=== PATIENT | male | born 1965 | race Caucasian/White ===

== ENCOUNTER → 2016-12-22 | Outpatient (CLI) | payer MEDICAID ==
[~2016-12-22] MED LIST: ASP325TEC PO; CARV12.5 PO; CEPH500C PO; HCTZ12.5T PO; LSNP20T PO
== END ==
LOC: CARD 15:45
PROVIDERS: ATTEND Physician Assistant
DX: I11.0 Hypertensive heart disease with heart failure (principal); R07.89 Other chest pain; I50.1 Left ventricular failure, unspecified
CPT/HCPCS: 93306

== ENCOUNTER → 2018-09-11 | Outpatient (CLI) | payer MEDICARE, MEDICAID ==
[~2018-09-11] MED LIST changes: +CATHETER FLUSH 10 ML SYR IV PRN; +REGADENOSON 0.4 MG/5 ML SYR (LEXISCAN) IV ONE
--- NOTE | 2018-09-11 13:06 | NUR ---
I entered room to assist with his stress test. Patient states he is not waiting any longer. I explain the process to him and that leaving now will result in no information from this test. He insisted he was leaving. I dc'd his int catheter in tact and applied a pressure drsg. I escorted him out to the winter way. Patient was very pleasant the whole time but insistent on leaving now.
== END ==
LOC: CARD 10:42
PROVIDERS: ATTEND Physician Assistant
DX: I25.10 Atherosclerotic heart disease of native coronary artery without angina pectoris (principal); R07.89 Other chest pain; I11.0 Hypertensive heart disease with heart failure; I50.9 Heart failure, unspecified; I08.1 Rheumatic disorders of both mitral and tricuspid valves
CPT/HCPCS: 78451; 93017; 93306

== ENCOUNTER 2020-07-15 06:37 | Day surgery (SDC) | payer MEDICARE, MEDICAID ==
[~2020-07-15] VITALS: Ht 172.5 cm; Wt 128.9 kg
[~2020-07-15 06:37] MED LIST changes: -CATHETER FLUSH 10 ML SYR IV PRN; -REGADENOSON 0.4 MG/5 ML SYR (LEXISCAN) IV ONE
[2020-07-15] MEDS ORDERED: morphine INJ 10 MG/ML 1ML (SYR OR VIAL) IVP STA (06:45)
[2020-07-15] MEDS ORDERED: MIDAZOLAM 5 MG/5 ML (VERSED) VIAL ONE (06:51)
[2020-07-15] MEDS ORDERED: fentaNYL INJ 100 MCG/2 ML AMP ONE ×2 (06:52→11:41)
--- NOTE | 2020-07-15 06:53 | ED Chest Pain ---
General Stated Complaint: CP Source: patient Exam Limitations: no limitations History of Present Illness Date Seen by Provider: Jul 15, 2020 Time Seen by Provider: 06:33 Initial Comments Patient presents the ER by EMS from [facility] with chief complaint of waking around 530 this morning with chest pain. He is followed with Dr. Mann in the past for heart failure but does not know if he is ever had stents or heart attack before. EMS gave him 1 aspirin on route but he would not take anymore because his mouth was dry. They noticed ST elevation in leads V1, V2 and V3. Patient has a history of hypertension hyperlipidemia but denies smoking. He does occasionally dip. He denies recreational drugs. He says he quit taking his medicines about 3 or 4 years ago. Pain is left anterior chest, nonreproducible to palpation and rates it as a 6 out of 10. No nitroglycerin given on route. Allergies and Home Medications Allergies Coded Allergies: No Known Drug Allergies (Unverified , 09/01/13) Home Medications Aspirin 325 Mg Tabec, 325 MG PO DAILY Prescribed by: LIBIA TROY on 09/03/13 1353 Carvedilol 12.5 Mg Tablet, 12.5 MG PO BID Prescribed by: LIBIA TROY on 09/03/13 1353 Cephalexin Monohydrate 500 Mg Capsule, 1 EACH PO QID, (Reported) Lisinopril 20 Mg Tab, 40 MG PO DAILY@0900 Prescribed by: LIBIA TROY on 09/03/13 1353 Patient Home Medication List Home Medication List Reviewed: Yes Review of Systems Review of Systems Constitutional: No chills, No diaphoresis EENTM: No Blurred Vision, No Double Vision Respiratory: Denies Cough, Denies Shortness of Air Cardiovascular: Denies Chest Pain, Denies Lightheadedness Gastrointestinal: Denies Constipated, Denies Diarrhea, Denies Nausea Genitourinary: Denies Burning, Denies Discharge Musculoskeletal: No back pain, No joint pain All Other Systems Reviewed Negative Unless Noted: Yes Past Jfenjmp-Rylezn-Yaudhh Hx Patient Social History Alcohol Use: Denies Use Smoking Status: Never a Smoker Type Used: Smokeless Tobacco Immunizations Up To Date Tetanus Booster (TDap): More than 5yrs Past Medical History Reproductive Disorders: No Family Medical History Cancer Cataract Chest pain Congenital heart disease Congestive heart failure Family history: Arthritis Family history: Asthma Family history: Cardiovascular disease Family history: Coronary thrombosis Family history: Diabetes mellitus Family history: Hypertension Heart disease History of - respiratory disease Hypercholesterolemia Kidney disease Myocardial infarction No Family History of: Abdominal aortic aneurysm Chase's disease Alcoholism Aphasia Cancer of colon Cystic fibrosis Dementia Dysphagia Family history: Allergy Family history: Alzheimer's disease Family history: Breast disease Family history: Gastrointestinal disease Family history: Glaucoma Family history: Osteoporosis Family history: Thyroid disorder Headache Hearing loss Hereditary disease History of - anemia History of drug abuse Human immunodeficiency virus (HIV) seropositivity Infertile Malignant neoplasm of lung Parkinson's disease Prostate cancer Psychotic disorder Seizure disorder Stroke Tuberculosis Visual impairment Physical Exam Vital Signs Capillary Refill : Height, Weight, BMI Height: 5'6.00" Weight: 318lbs. 3.2oz. [id number]; BMI Method: General Appearance: Chronically ill, Moderate Distress, Obese HEENT: Pharynx Normal, Moist Mucous Membranes Neck: Full Range of Motion, Normal Inspection Respiratory: No Accessory Muscle Use, No Respiratory Distress Cardiovascular: Regular Rate, Rhythm, Normal Peripheral Pulses Gastrointestinal: Normal Bowel Sounds, Non Tender, Soft Extremity: Normal Capillary Refill, Normal Inspection Neurologic/Psychiatric: Alert, Oriented x3, No Motor/Sensory Deficits Skin: Normal Color, Warm/Dry Progress/Results/Core Measures Results/Orders My Orders Orders - RENA BROWNE Cbc With Automated Diff (07/15/20 06:45) Magnesium (07/15/20 06:45) Chest 1 View, Ap/Pa Only (07/15/20 06:45) Ekg Tracing (07/15/20 06:45) Comprehensive Metabolic Panel (07/15/20 06:45) Myoglobin Serum (07/15/20 06:45) Protime With Inr (07/15/20 06:45) Partial Thromboplastin Time (07/15/20 06:45) O2 (07/15/20 06:45) Monitor-Rhythm Ecg Trace Only (07/15/20 06:45) Lipid Panel (07/16/20 06:00) Ed Iv/Invasive Line Start (07/15/20 06:45) Lipase (07/15/20 06:45) BNP (07/15/20 06:45) Troponin I (07/15/20 06:45) Nitroglycerin 0.4 Mg Btl 25's (Nitrostat (07/15/20 06:45) Morphine Injection (Morphine Injection (07/15/20 06:45) Progress Progress Note : Time: 06:54 Progress Note Patient left for Hospice Social Worker at 650. We were not able to initiate heparin drip but we did get 2 IVs, and EKG vitals and send him with nitroglycerin and morphine. Initial ECG Impression Date: Jul 15, 2020 Initial ECG Impression Time: 06:42 Initial ECG Rate: 121 Initial ECG Rhythm: S.Tach Initial ECG Intervals: Normal Initial ECG Impression: Acute MS Comment ST elevation in leads V1, V2, V3, V4. No inferior changes. Diagnostic Imaging Diagonstic Imaging: Xray Plain Films/CT/US/NM/MRI: chest Reviewed: Reviewed by Me Departure Communication (Admissions) Time/Spoke to Admitting Phy: 06:15 Dr Moses: Cardiology notified that STEMI was on the way by EMS and Hospice Social Worker was notified. Impression Primary Impression: STEMI (ST elevation myocardial infarction) Qualified Codes: I21.02 - ST elevation (STEMI) myocardial infarction involving left anterior descending coronary artery Disposition: ADMITTED INPATIENT Condition: Critical Admissions Decision to Admit Reason: Admit from ER (General) Decision to Admit/Date: Jul 15, 2020 Time/Decision to Admit Time: 06:40 Departure-Patient Inst. Referrals: [facility] (PCP/Family) Primary Care Physician RENA BROWNE Jul 15, 2020 06:53
[2020-07-15 06:55] LABS: BASOPHILS # (AUTO) 0.1 10^3/uL (0.0-0.1); BASOPHILS % (AUTO) 0 % (0-10); EOSINOPHILS % (AUTO) 0 % (0-10); HEMATOCRIT 46 % (40-54); HEMOGLOBIN 14.7 g/dL (13.3-17.7); LYMPHOCYTES # (AUTO) 1.9 10^3/uL (1.0-4.0); LYMPHOCYTES % (AUTO) 12 % (12-44); MEAN CORPUSCULAR HEMOGLOBIN 30 pg (25-34); MEAN CORPUSCULAR HGB CONC 32 g/dL (32-36); MEAN CORPUSCULAR VOLUME 92 fL (80-99); MONOCYTES # (AUTO) 1.1 10^3/uL (0.0-1.0); MONOCYTES % (AUTO) 7 % (0-12); NEUTROPHILS # (AUTO) 12.3 10^3/uL (1.8-7.8); NEUTROPHILS % (AUTO) 80 % (42-75); PLATELET COUNT 293 10^3/uL (130-400); WHITE BLOOD COUNT 15.5 10^3/uL (4.3-11.0)
[2020-07-15] MEDS ORDERED: proPOfol 200 MG/20 ML (DIPRIVAN) VIAL IV ONE (07:04)
[2020-07-15 07:05] LABS: INR 1.1 (0.8-1.4); PROTHROMBIN TIME PATIENT 14.1 SEC (12.2-14.7)
[2020-07-15 07:06] LABS: CHLORIDE 97 MMOL/L (98-107); POTASSIUM 3.4 MMOL/L (3.6-5.0); SODIUM 136 MMOL/L (135-145)
[2020-07-15 07:07] LABS: CALCIUM 8.8 MG/DL (8.5-10.1)
[2020-07-15] MEDS ORDERED: NITRO DRIP 25000 MCG/D5W 250 ML IV ONE (07:07)
[2020-07-15 07:08] LABS: GLUCOSE 334 MG/DL (70-105); TOTAL PROTEIN 7.7 GM/DL (6.4-8.2)
[2020-07-15 07:09] LABS: CARBON DIOXIDE 25 MMOL/L (21-32)
[2020-07-15 07:10] LABS: BILIRUBIN,TOTAL 0.9 MG/DL (0.1-1.0)
[2020-07-15 07:11] LABS: ALKALINE PHOSPHATASE 133 U/L (40-136)
[2020-07-15 07:12] LABS: CREATININE SERUM 0.96 MG/DL (0.60-1.30); GFR ESTIMATED > 60
[2020-07-15 07:13] LABS: BUN/CREATININE RATIO 10
[2020-07-15 07:15] LABS: ALANINE AMINOTRANSFERASE 20 U/L (0-55); MAGNESIUM 1.8 MG/DL (1.6-2.4)
[2020-07-15 07:16] LABS: LIPASE 11 U/L (8-78)
[2020-07-15] MEDS ORDERED: EPTIFIBATIDE BOLUS 20 ML IV ONE (07:16)
[2020-07-15] MEDS ORDERED: EPTIFIBATIDE BOLUS 10 ML IV ONE (07:16)
[2020-07-15] MEDS ORDERED: CLOPIDOGREL 300 MG (PLAVIX) TABLET PO ONE (07:32)
[2020-07-15] MEDS ORDERED: ASPIRIN 81 MG CHEW (CHILDREN'S ASA) ONE (07:32)
[2020-07-15 07:39] LABS: BASOPHILS % (MANUAL) 1 %; EOSINOPHILS % (MANUAL) 0 %; LYMPHOCYTES % (MANUAL) 10 %; MONOCYTES % (MANUAL) 7 %; NEUTROPHILS % (MANUAL) 82 %; RBC MORPH NORMAL
[2020-07-15] MEDS ORDERED: lisINopril 20 MG (PRINIVIL) TABLET PO ONE (07:45)
[2020-07-15] MEDS ORDERED: NS IV 1000 ML 1,000 ML IV SCH (07:45)
[2020-07-15] MEDS ORDERED: meTOprolol 5 MG/5 ML (LOPRESSOR) VIAL ONE (07:45)
[2020-07-15] MEDS ORDERED: PATIENT MAY USE OWN MEDS, ALL PO SCH (07:45)
[2020-07-15] MEDS ORDERED: meTOprolol SUCCINATE 100 MG (TOPROL XL) TAB PO ONE ×3 (07:45→19:00)
[2020-07-15 08:00] VITALS: BP 184/137
[2020-07-15] MEDS ORDERED: KCL 20 MEQ TAB (K-DUR) PO ONE (08:00)
--- NOTE | 2020-07-15 08:03 | Consultation-Cardiology ---
HPI-Cardiology Cardiology Consultation: Date of Consultation 07/15/20 Time Seen by a Provider: 06:50 Date of Admission 07/15/20 Attending Physician Admitting Physician [facility] Consulting Physician ZURDO TRIMBLE MD, MA, FACP, FACC, FSCAI, CCDS HPI: Chief Complaint: CC: Chest pain HPI 55 yo man with sudden onset of chest pain: midsternal, severe, radiating to back, associated with diaphoresis, w/o aggravating or relieving factors, never experienced before. Found to have ST elevation in ant leads by EMT. Brought to ER here and underwent emergency card cath and cor intervention for continuing severe symptoms and marked ST elevation in the anterior leads. Chronic exertional shortness of breath. No palp or syncope. Chronic, mild, intermittent ankle swellin Review of Systems-Cardiology Review of Systems Constitutional: No malaise, No weight loss, No weight gain Eyes: No vision change Ears/Nose/Throat: No ear discharge, No nasal drainage, No recent hearing loss Respiratory: As described under HPI Cardiovascular: As described under HPI Gastrointestinal: No diarrhea, No vomiting Genitourinary: No dysuria, No hematuria, No urine frequency changes Musculoskeletal: back pain (chronic) Skin: No rash, No ulcerations Psychiatric/Neurological: No seizure, No focal weakness, No syncope Hematologic: No bleeding abnormalities All Other Systems Reviewed Negative Unless Noted: Yes YZU-Ofsmvk-Jetaju Hx Patient Social History Smoking Status: Never a Smoker 2nd Hand Smoke Exposure: No Immunizations Up To Date Tetanus Booster (TDap): More than 5yrs Past Medical History PMH As described under Assessment. Family Medical History Family History: Cancer Cataract Chest pain Congenital heart disease Congestive heart failure Family history: Arthritis Family history: Asthma Family history: Cardiovascular disease Family history: Coronary thrombosis Family history: Diabetes mellitus Family history: Hypertension Heart disease History of - respiratory disease Hypercholesterolemia Kidney disease Myocardial infarction No Family History of: Abdominal aortic aneurysm Kila's disease Alcoholism Aphasia Cancer of colon Cystic fibrosis Dementia Dysphagia Family history: Allergy Family history: Alzheimer's disease Family history: Breast disease Family history: Gastrointestinal disease Family history: Glaucoma Family history: Osteoporosis Family history: Thyroid disorder Headache Hearing loss Hereditary disease History of - anemia History of drug abuse Human immunodeficiency virus (HIV) seropositivity Infertile Malignant neoplasm of lung Parkinson's disease Prostate cancer Psychotic disorder Seizure disorder Stroke Tuberculosis Visual impairment Allergies and Home Medications Allergies Coded Allergies: No Known Drug Allergies (Unverified , 09/01/13) Home Medications Aspirin 325 Mg Tabec, 325 MG PO DAILY Prescribed by: LIBIA TROY on 09/03/13 135 Carvedilol 12.5 Mg Tablet, 12.5 MG PO BID Prescribed by: LIBIA TROY on 09/03/131352 Cephalexin Monohydrate 500 Mg Capsule, 1 EACH PO QID, (Reported) Lisinopril 20 Mg Tab, 40 MG PO DAILY@0900 Prescribed by: LIBIA TROY on 09/03/13 135 Patient Home Medication List Home Medication List Reviewed: Yes Physical Exam-Cardiology Physical Exam Vital Signs/I&O 07/15/20 07/15/20 07/15/20 07/15/20 06:40 06:40 06:40 06:51 Temp 36.0 36.0 Pulse 120 118 Resp 20 20 B/P (MAP) 208/147 (167) 200/120 Pulse Ox 91 91 91 O2 Delivery OxyMask OxyMask OxyMask OxyMask O2 Flow Rate 10.0 10.00 10.0 10.00 Capillary Refill : Less Than 3 Seconds Constitutional: AAO x 3, well-developed, well-nourished HEENT: No xanthelasmas are seen Neck: carotid pulses are 2 + bilaterally, with good upstrokes Respiratory: No accessory muscle use; other (fair to good, bilateral air entry) Cardiovascular: regular rate-rhythm, S1 and S2, systolic murmur (soft JUS at card base) Gastrointestinal: No tender; soft; No guarding, No rebound; audible bowel sounds Extremities: No clubbing, No cyanosis, No significant edema Neurologic/Psychiatric: oriented x 3, other (moves all limbs equally) Skin: No rash on exposed areas, No ulcerations on exposed areas Data Review Labs Laboratory Tests 07/15/20 06:45: White Blood Count 15.5H, Red Blood Count 4.95, Hemoglobin 14.7, Hematocrit 46, Mean Corpuscular Volume 92, Mean Corpuscular Hemoglobin 30, Mean Corpuscular Hemoglobin Concent 32, Red Cell Distribution Width 13.6, Platelet Count 293, Mean Platelet Volume 11.0, Immature Granulocyte % (Auto) 1, Neutrophils (%) (Auto) 80H, Lymphocytes (%) (Auto) 12, Monocytes (%) (Auto) 7, Eosinophils (%) (Auto) 0, Basophils (%) (Auto) 0, Neutrophils # (Auto) 12.3H, Lymphocytes # (Auto) 1.9, Monocytes # (Auto) 1.1H, Eosinophils # (Auto) 0.0, Basophils # (Auto) 0.1, Immature Granulocyte # (Auto) 0.1, Neutrophils % (Manual) 82, Lymphocytes % (Manual) 10, Monocytes % (Manual) 7, Eosinophils % (Manual) 0, Basophils % (Manual) 1, Blood Morphology Comment NORMAL, Prothrombin Time 14.1, INR Comment 1.1, Activated Partial Thromboplast Time 30, Sodium Level 136, Potassium Level 3.4L, Chloride Level 97L, Carbon Dioxide Level 25, Anion Gap 14, Blood Urea Nitrogen 10, Creatinine 0.96, Estimat Glomerular Filtration Rate > 60, BUN/Creatinine Ratio 10, Glucose Level 334H, Calcium Level 8.8, Corrected Calcium 8.8, Magnesium Level 1.8, Total Bilirubin 0.9, Aspartate Amino Transf (AST/SGOT) 22, Alanine Aminotransferase (ALT/SGPT) 20, Alkaline Phosphatase 133, Myoglobin 90.3, Troponin I 0.754*H, B-Type Natriuretic Peptide 160.5H, Total Protein 7.7, Albumin 4.0, Lipase 11 Laboratory Tests 07/15/20 06:45 A/P-Cardiology Assessment/Admission Diagnosis CAD - Ac anterior wall STEMI on 07/15/20 - Card cath: mid vessel occlusion of LAD treated with primary PCI and stenting with Alpine Xience 2.75 x 23 mm stent (deployed at 20 lucas), multiple 30-40% stenoses in the LCx and RCA, LVEDP approx 30 mmHg, LVEF approx 45% Cardiac risk factors - Hypertension, noncompliant with treatment - DM II, noncompliant with treatment - Obesity Discussion and Recomendations * DAPT * Statin * BB * RADHA-inhib * Replenish K * Monitor labs * Hospitalist consult for management of DM II Clinical Quality Measures AMI/AHF: ASA po Prior to arrival: Yes (81) ZURDO TRIMBLE MD FACP [facility] Jul 15, 2020 08:03
[2020-07-15] MEDS ORDERED: PATIENT MAY USE OWN MEDS, ALL MC SCH (08:15)
[2020-07-15] MEDS: NS IV 1000 ML 1,000 ML IV SCH ×2 (08:15→17:19)
[2020-07-15 09:00] VITALS: BP 196/148
[2020-07-15] MEDS ORDERED: lisINopril 20 MG (PRINIVIL) TABLET PO NR (09:00)
[2020-07-15] MEDS ORDERED: meTOprolol SUCCINATE 100 MG (TOPROL XL) TAB PO NR ×2 (09:00→11:00)
[2020-07-15] MEDS ORDERED: KCL 20 MEQ TAB (K-DUR) PO NR (09:00)
--- NOTE | 2020-07-15 10:03 | Anesthesia-General Post-Op ---
MAC Patient Condition Mental Status/LOC: Same as Preop Cardiovascular: Satisfactory Nausea/Vomiting: Absent Respiratory: Satisfactory Pain: Controlled Complications: Absent Post Op Complications Complications None Follow Up Care/Instructions Patient Instructions None needed. Anesthesiology Discharge Order Discharge Order I was called to laborer bituminous paving to assist with sedation after midazolam 1 mg IV and fentanyl 25 mcg IV was given. He was extremely anxious and agitated prior to my arrival. Patient is currently doing well, still appears somewhat SOB but SaO2 low 90's, hypertensive and tachycardic, no apparent adverse anesthesia problems. MARLYN CONROY DO Jul 15, 2020 10:03
[2020-07-15] MEDS ORDERED: amLODIPine 5 MG (NORVASC) TAB ONE (10:38)
[2020-07-15] MEDS ORDERED: NITROGLYCERIN 0.4 MG SL TABS BTL 25'S SL ONE (10:45)
[2020-07-15] MEDS ORDERED: amLODIPine 5 MG (NORVASC) TAB PO NR (11:00)
[2020-07-15] MEDS ORDERED: LORazepam INJ 2 MG/ML (ATIVAN) VIAL ONE (11:33)
[2020-07-15] MEDS ORDERED: ATROPINE INJECTION 1 MG/10 ML SYR (ABBOTT) ONE (11:41)
[2020-07-15] MEDS: NITROGLYCERIN 0.4 MG SL TABS BTL 25'S SL PRN ×2 (11:44→11:52)
[2020-07-15] MEDS ORDERED: LORazepam INJ 2 MG/ML (ATIVAN) VIAL IVP NR (11:45)
--- NOTE | 2020-07-15 11:59 | Consultation - Hospitalist ---
DEQUAN FELIZ MED STUDENT 07/15/20 1159: HPI History of Present Illness: HPI/Chief Complaint Pt is a 55 yo M admitted to ICU follow ED visit for CC of chest pain. Pt called EMS following intense chest pain, SOB, and palpitations on a walk. Pt was found to have ST elevations in leads V1, V2, and V3. Pt was evaluated by Dr. Moses and sent for stent placement of LAD. Pt has a hx of CHF, HTN, and diabetes to which he notes that he stopped all medications 3-4 years ago without real reason. We are being consulted today for evaluation and management of the patients diabetes. Glucose readings in ED were 334. Pt denies checking his blood sugar regularly or taking insulin. Source: patient, RN/MD (ED summary/ notes) Date Seen 07/15/20 Attending Physician [facility]quan Moses [facility] [place] Referring Physician Date of Admission Home Medications & Allergies Home Medications Reviewed patient Home Medication Reconciliation performed by pharmacy medication reconciliations microcomputer technician and/or nursing. Patients Allergies have been reviewed. Allergies Allergies Coded Allergies No Known Drug Allergies (Unverified09/01/13) Past Yzsurbt-Iuzjqe-Krtflm Hx Patient Social History Alcohol Use: Denies Use Recreational Drug Use: No Smoking Status: Never a Smoker Type Used: Smokeless Tobacco 2nd Hand Smoke Exposure: No Recent Foreign Travel: No Contact w/other who traveled: No Recent Hopitalizations: No Recent Infectious Disease Expo: No Immunizations Up To Date Tetanus Booster (TDap): More than 5yrs Seasonal Allergies Seasonal Allergies: No Past Medical History Cardiac: Coronary Artery Disease, Hypertension Congestive Heart Failure Reproductive: No Endocrine: Diabetes, Insulin dep Are Your Blood Sugars Over 250: Yes History of Blood Disorders: No Family History Cancer Cataract Chest pain Congenital heart disease Congestive heart failure Family history: Arthritis Family history: Asthma Family history: Cardiovascular disease Family history: Coronary thrombosis Family history: Diabetes mellitus Family history: Hypertension Heart disease History of - respiratory disease Hypercholesterolemia Kidney disease Myocardial infarction No Family History of: Abdominal aortic aneurysm [place]'s disease Alcoholism Aphasia Cancer of colon Cystic fibrosis Dementia Dysphagia Family history: Allergy Family history: Alzheimer's disease Family history: Breast disease Family history: Gastrointestinal disease Family history: Glaucoma Family history: Osteoporosis Family history: Thyroid disorder Headache Hearing loss Hereditary disease History of - anemia History of drug abuse Human immunodeficiency virus (HIV) seropositivity Infertile Malignant neoplasm of lung Parkinson's disease Prostate cancer Psychotic disorder Seizure disorder Stroke Tuberculosis Visual impairment Review of Systems Constitutional: No chills, No dizziness EENTM: no symptoms reported Respiratory: cough, dyspnea on exertion, hemoptysis, orthopnea, short of breath Cardiovascular: chest pain, palpitations Gastrointestinal: No abdominal pain, No nausea, No vomiting Genitourinary: no symptoms reported Musculoskeletal: No back pain, No muscle pain Skin: no symptoms reported Psychiatric/Neurological: Denies Numbness, Denies Paresthesia, Denies Weakness All Other Systems Reviewed Negative Unless Noted: Yes Physical Exam Physical Exam Vital Signs Vital Signs - First Documented Capillary Refill : Less Than 3 Seconds Height, Weight, BMI Height: 5'6.00" Weight: 318lbs. 3.2oz. 144.106388pi; 43.00 BMI Method: General Appearance: Chronically ill, Moderate Distress, Obese HEENT: Pharynx Normal, Moist Mucous Membranes Neck: Full Range of Motion, Normal Inspection Respiratory: No Accessory Muscle Use, No Respiratory Distress, Decreased Breath Sounds Cardiovascular: Normal Peripheral Pulses, Tachycardia Gastrointestinal: Normal Bowel Sounds, Non Tender, Soft Rectal: Deferred Extremity: Normal Capillary Refill, Normal Inspection, Non Tender, No Calf Tenderness, Pedal Edema, Swelling (LE edema) Neurologic/Psychiatric: Alert, Oriented x3, No Motor/Sensory Deficits Skin: Normal Color, Warm/Dry Results Results/Procedures Labs Laboratory Tests 07/15/20 06:45 Patient resulted labs reviewed. Assessment/Plan Assessment and Plan Assess & Plan/Chief Complaint ASSESSMENT: Uncontrolled T2DM Post coronary stent placement (07/15) HTN CHF PLAN: Stabilize pt BP/ HR Initiate sliding scale insulin Monitor glucose Potassium replacement Pt education Appreciate cardiology recs Consult Dr. Gomes for hemoptysis Clinical Quality Measures AMI/AHF: ASA po Prior to arrival: Yes (81) ANA CROSS DO 07/16/20 0532: HPI History of Present Illness: HPI/Chief Complaint CC: DM management HPI: [facility] 55[facility] and was taken to mushroom laborer and stent placed. Patient has a h/o DM and CHF and is disabled and stopped taking all of his meds 4 years ago. Patient is very non- compliant with sheath restrictions following cath procedure. Patient is not interested in insulin or any other medication and treatment so will try out best to manage this complex patient Source: patient, RN/MD (ED summary/ notes) Exam Limitations: clinical condition Past Insjdhz-Sadkqw-Vyrdmp Hx Past Med/Social Hx: Reviewed Nursing Past Med/Soc Hx, Reviewed and Corrections made Patient Social History Marrital Status: single Employed/Student: unemployed Family History Cancer Cataract Chest pain Congenital heart disease Congestive heart failure Family history: Arthritis Family history: Asthma Family history: Cardiovascular disease Family history: Coronary thrombosis Family history: Diabetes mellitus Family history: Hypertension Heart disease History of - respiratory disease Hypercholesterolemia Kidney disease Myocardial infarction No Family History of: Abdominal aortic aneurysm [place]'s disease Alcoholism Aphasia Cancer of colon Cystic fibrosis Dementia Dysphagia Family history: Allergy Family history: Alzheimer's disease Family history: Breast disease Family history: Gastrointestinal disease Family history: Glaucoma Family history: Osteoporosis Family history: Thyroid disorder Headache Hearing loss Hereditary disease History of - anemia History of drug abuse Human immunodeficiency virus (HIV) seropositivity Infertile Malignant neoplasm of lung Parkinson's disease Prostate cancer Psychotic disorder Seizure disorder Stroke Tuberculosis Visual impairment Review of Systems Constitutional: see HPI Physical Exam Physical Exam General Appearance: Anxious, Chronically ill, Moderate Distress, Obese Respiratory: No Accessory Muscle Use, No Respiratory Distress, Decreased Breath Sounds Cardiovascular: Tachycardia Assessment/Plan Assessment and Plan Assess & Plan/Chief Complaint Assessment: DM OOC Non-compliance with treatments Obesity Appears to have YONI Plan: Monitor closely Diagnosis/Problems Diagnosis/Problems (1) Acute ST elevation myocardial infarction (STEMI) of anterior wall Supervisory-Addendum Brief Verification & Attestation Participated in pt care: history, MDM, physical Personally performed: exam, history, MDM, supervision of care Care discussed with: Medical Student Procedures: n/a Results interpretation: Verified all documentation Verification and Attestation of Medical Student E/M Service A medical student performed and documented this service in my presence. I reviewed and verified all information documented by the medical student and made modifications to such information, when appropriate. I personally performed the physical exam and medical decision making. Ana Cross, Jul 16, 2020,05:33 DEQUAN FELIZ MED STUDENT Jul 15, 2020 11:59 ANA CROSS DO Jul 16, 2020 05:32
--- NOTE | 2020-07-15 14:04 | Pulmonary Consultation ---
History of Present Illness History of Present Illness Date Seen by Provider: Jul 15, 2020 Time Seen by Provider: 13:59 Date of Admission History of Present Illness 55yo preseted to ED secondary to sudden onset midsternal 02/13 radiating to back and associated with diaphoresis. He was found to have a STEMI in the anterior leads. He is now s/p emergent cath with stent placement. Allergies and Home Medications Allergies Coded Allergies: No Known Drug Allergies (Unverified , 09/01/13) Home Medications Aspirin 325 Mg Tabec, 325 MG PO DAILY Prescribed by: LIBIA TROY on 09/03/13 1353 Carvedilol 12.5 Mg Tablet, 12.5 MG PO BID Prescribed by: LIBIA TROY on 09/03/13 1353 Cephalexin Monohydrate 500 Mg Capsule, 1 EACH PO QID, (Reported) Lisinopril 20 Mg Tab, 40 MG PO DAILY@0900 Prescribed by: LIBIA TROY on 09/03/13 1353 Past Kbzihdt-Ncmlgy-Khizuj Hx Patient Social History Alcohol Use: Denies Use Smoking Status: Heavy Tobacco Smoker Type Used: Smokeless Tobacco 2nd Hand Smoke Exposure: No Recent Infectious Disease Expo: No Recent Hopitalizations: No Have you traveled recently?: No Alcohol Use?: No Immunizations Up To Date Tetanus Booster (TDap): More than 5yrs Seasonal Allergies Seasonal Allergies: No Past Medical History Surgeries: Yes (HEART CATH) Respiratory: No Cardiac: Yes (CHF) Coronary Artery Disease, Hypertension Neurological: No Reproductive Disorders: No Genitourinary: No Gastrointestinal: No Musculoskeletal: No Endocrine: No Diabetes, Insulin dep Are Your Blood Sugars Over 250: Yes HEENT: No Cancer: No Psychosocial: No Integumentary: No Blood Disorders: No Family Medical History Cancer Cataract Chest pain Congenital heart disease Congestive heart failure Family history: Arthritis Family history: Asthma Family history: Cardiovascular disease Family history: Coronary thrombosis Family history: Diabetes mellitus Family history: Hypertension Heart disease History of - respiratory disease Hypercholesterolemia Kidney disease Myocardial infarction No Family History of: Abdominal aortic aneurysm Zain's disease Alcoholism Aphasia Cancer of colon Cystic fibrosis Dementia Dysphagia Family history: Allergy Family history: Alzheimer's disease Family history: Breast disease Family history: Gastrointestinal disease Family history: Glaucoma Family history: Osteoporosis Family history: Thyroid disorder Headache Hearing loss Hereditary disease History of - anemia History of drug abuse Human immunodeficiency virus (HIV) seropositivity Infertile Malignant neoplasm of lung Parkinson's disease Prostate cancer Psychotic disorder Seizure disorder Stroke Tuberculosis Visual impairment Review of Systems Time Seen by Provider: 14:27 Sepsis Event Evaluation Height, Weight, BMI Height: 5'6.00" Weight: 318lbs. 3.2oz. 144.196343xt; 43.01 BMI Method: Exam Exam Vital Signs Date Time Temp Pulse Resp B/P (MAP) Pulse Ox O2 Delivery O2 Flow Rate FiO2 07/15/20 13:00 97 07/15/20 12:06 101 44 148/102 (117) 94 High Flow N/C 10.00 07/15/20 12:00 High Flow N/C 10.00 07/15/20 11:00 117 38 205/121 (149) 78 High Flow N/C 10.00 07/15/20 10:00 116 60 195/163 (174) 78 High Flow N/C 10.00 07/15/20 09:00 112 196/148 (164) 07/15/20 09:00 112 48 189/141 (157) 96 High Flow N/C 10.00 07/15/20 08:00 98 30 184/137 (153) 93 07/15/20 08:00 101 07/15/20 07:50 118 20 202/155 (171) 93 OxyMask 10.00 07/15/20 06:51 36.0 118 20 200/120 91 OxyMask 10.00 07/15/20 06:40 OxyMask 10.0 07/15/20 06:40 91 OxyMask 10.00 07/15/20 06:40 36.0 120 20 208/147 (167) 91 OxyMask 10.0 Height & Weight Height: 5'6.00" Weight: 318lbs. 3.2oz. 144.246643uv; 43.01 BMI Method: General Appearance: Chronically ill, Moderate Distress, Obese HEENT: Pharynx Normal, Moist Mucous Membranes Neck: Full Range of Motion, Normal Inspection Respiratory: No Accessory Muscle Use, No Respiratory Distress, Decreased Breath Sounds Cardiovascular: Normal Peripheral Pulses, Tachycardia Capillary Refill: Less Than 3 Seconds Extremity: Normal Capillary Refill, Normal Inspection, Non Tender, No Calf Tenderness, Pedal Edema, Swelling (LE edema) Neurologic/Psychiatric: Alert, Oriented x3, No Motor/Sensory Deficits Skin: Normal Color, Warm/Dry Results Lab Laboratory Tests 07/15/20 06:45 Assessment/Plan Assessment/Plan Respiratory distress with hypoxia -Check PCT -Check CXR and ABG Pulmonary edema r/o PNA -Start Zosyn -continue Lasix -Check PCT CHF EF 45% with hypoxia -Continue lasix Hemoptysis - Onset was after heart cath -Will continue to monitor for now -Obtain CXR -Monitor -Check bilateral LE dopplers Acute STEMI s/p cath CAD Never smoker DM II HTN Morbid Obestiy JHONNY BRYANT DO Jul 15, 2020 14:04
[2020-07-15 14:36] LABS: ABG BASE EXCESS 1.3 MMOL/L (-2.5-2.5); ABG OXYGEN SATURATION 94 % (94-100); ABG PCO2 39 MMHG (35-45); ABG PH 7.43 (7.37-7.43); ABG PO2 74 MMHG (79-93); ABG TCO2 26.6 MMOL/L (21.0-31.0)
[2020-07-15 14:40] LABS: ALLENS TEST POS; INSPIRED O2 60%
--- NOTE | 2020-07-15 14:40 | Diagnostic Imaging Report ---
INDICATION: Hemoptysis. TIME OF EXAM: 2:15 PM COMPARISON: Correlation is made with prior chest 09/01/2013. FINDINGS: Heart is enlarged. There is airspace infiltrate in the left upper lobe. There is central congestion. No effusion or pneumothorax is identified. IMPRESSION: Cardiomegaly with left upper lobe airspace pulmonary infiltrate. Dictated by: Dictated on workstation # [id number]
[2020-07-15 14:42] LABS: PATIENT TEMP 97.4
[2020-07-15] MEDS ORDERED: PIPERACILLIN/TAZOBACTAM 4.5 GM in NS (IVPB) 100 ML IV NR (15:00)
--- NOTE | 2020-07-15 15:22 | Diagnostic Imaging Report ---
PROCEDURE: US Venous Lower Ext Dominic. TECHNIQUE: Multiple real-time grayscale images were obtained over the lower extremities in various projections, bilaterally. Additional duplex Doppler and color Doppler images were also obtained. INDICATION: Dyspnea and bilateral lower extremity swelling EXAMINATIONS: Both grayscale and color Doppler imaging of the deep veins of the lower extremities were performed with waveform analysis. FINDINGS: There is no intraluminal filling defect. Normal continuous flow is seen throughout the deep venous systems of both legs, and there is normal response to augmentation. The deep veins compress normally. IMPRESSION: No ultrasound evidence of deep venous thrombosis in either lower extremity. Dictated by: Dictated on workstation # [id number]
[2020-07-15] MEDS ORDERED: ASPI-1238 PO (15:36)
[2020-07-15] MEDS ORDERED: ACET-2267 PO (15:36)
[2020-07-15] MEDS ORDERED: doxAzosin 2 MG (CARDURA) TAB PO PRN (20:45)
[2020-07-15] MEDS ORDERED: meTOprolol SUCCINATE 100 MG (TOPROL XL) TAB PO SCH (21:00)
[2020-07-15] MEDS: PIPERACILLIN/TAZOBACTAM (BULK) 4.5 GM in NS (IVPB) 100 ML IV SCH (21:21)
[2020-07-16 03:04] LABS: BASOPHILS % (AUTO) 0 % (0-10); EOSINOPHILS % (AUTO) 0 % (0-10); HEMATOCRIT 41 % (40-54); HEMOGLOBIN 13.5 g/dL (13.3-17.7); LYMPHOCYTES # (AUTO) 3.1 10^3/uL (1.0-4.0); LYMPHOCYTES % (AUTO) 20 % (12-44); MEAN CORPUSCULAR HEMOGLOBIN 31 pg (25-34); MEAN CORPUSCULAR HGB CONC 33 g/dL (32-36); MEAN CORPUSCULAR VOLUME 92 fL (80-99); MEAN PLATELET VOLUME 11.3 fL (9.0-12.2); MONOCYTES # (AUTO) 1.4 10^3/uL (0.0-1.0); MONOCYTES % (AUTO) 9 % (0-12); NEUTROPHILS # (AUTO) 10.7 10^3/uL (1.8-7.8); NEUTROPHILS % (AUTO) 70 % (42-75); PLATELET COUNT 340 10^3/uL (130-400); WHITE BLOOD COUNT 15.4 10^3/uL (4.3-11.0)
[2020-07-16 03:16] LABS: CHLORIDE 98 MMOL/L (98-107); POTASSIUM 4.5 MMOL/L (3.6-5.0); SODIUM 133 MMOL/L (135-145)
[2020-07-16 03:17] LABS: CALCIUM 8.4 MG/DL (8.5-10.1)
[2020-07-16 03:18] LABS: GLUCOSE 272 MG/DL (70-105)
[2020-07-16 03:19] LABS: CARBON DIOXIDE 25 MMOL/L (21-32)
[2020-07-16 03:21] LABS: PHOSPHORUS 3.9 MG/DL (2.3-4.7)
[2020-07-16 03:22] LABS: CREATININE SERUM 0.98 MG/DL (0.60-1.30); GFR ESTIMATED > 60
[2020-07-16 03:23] LABS: BUN/CREATININE RATIO 14
[2020-07-16 03:24] LABS: MAGNESIUM 1.8 MG/DL (1.6-2.4)
--- NOTE | 2020-07-16 05:13 | Pulmonary Progress Note ---
Subjective Time Seen by a Provider: 05:07 Subjective/Events-last exam Pt is still requiring oxygen. Sepsis Event Evaluation Height, Weight, BMI Height: 5'6.00" Weight: 318lbs. 3.2oz. 144.916334gg; 43.01 BMI Method: Exam Exam Vital Signs Date Time Temp Pulse Resp B/P (MAP) Pulse Ox O2 Delivery O2 Flow Rate FiO2 07/16/20 03:51 94 High Flow N/C 6.00 07/16/20 03:49 36.4 High Flow N/C 6.00 07/16/20 02:00 20 High Flow N/C 6.00 07/16/20 02:00 96 28 155/120 (132) 95 High Flow N/C 6.00 07/16/20 01:00 92 07/16/20 01:00 91 26 148/103 (118) 94 High Flow N/C 6.00 07/16/20 00:00 95 28 161/127 (138) 97 High Flow N/C 6.00 07/15/20 23:40 94 High Flow N/C 6.00 07/15/20 23:00 36.7 18 High Flow N/C 6.00 07/15/20 23:00 98 154/112 (126) 94 High Flow N/C 6.00 07/15/20 22:00 73 167/117 (134) 95 High Flow N/C 6.00 07/15/20 21:00 96 166/113 (130) 96 High Flow N/C 6.00 07/15/20 20:00 94 High Flow N/C 6.00 07/15/20 20:00 96 162/113 (129) 91 High Flow N/C 6.00 07/15/20 19:00 102 180/124 (142) 89 High Flow N/C 6.00 07/15/20 19:00 104 07/15/20 19:00 36.9 20 92 High Flow N/C 6.00 07/15/20 18:00 101 153/132 (139) 91 High Flow N/C 10.00 07/15/20 17:00 106 166/139 (148) High Flow N/C 10.00 07/15/20 16:00 High Flow N/C 10.00 07/15/20 16:00 37.0 07/15/20 16:00 160/115 (130) High Flow N/C 10.00 07/15/20 15:00 48 168/136 (147) 94 High Flow N/C 10.00 07/15/20 14:24 95 Vapotherm 20.00 60 07/15/20 14:00 150/105 (120) 85 High Flow N/C 10.00 07/15/20 13:00 97 07/15/20 13:00 98 150/113 (125) 89 High Flow N/C 10.00 07/15/20 12:06 101 44 148/102 (117) 94 High Flow N/C 10.00 07/15/20 12:00 High Flow N/C 10.00 07/15/20 11:00 117 38 205/121 (149) 78 High Flow N/C 10.00 07/15/20 10:00 116 60 195/163 (174) 78 High Flow N/C 10.00 07/15/20 09:00 112 196/148 (164) 07/15/20 09:00 112 48 189/141 (157) 96 High Flow N/C 10.00 07/15/20 08:00 OxyMask 10.00 07/15/20 08:00 98 30 184/137 (153) 93 07/15/20 08:00 101 07/15/20 07:50 118 20 202/155 (171) 93 OxyMask 10.00 07/15/20 06:51 36.0 118 20 200/120 91 OxyMask 10.00 07/15/20 06:40 OxyMask 10.0 07/15/20 06:40 91 OxyMask 10.00 07/15/20 06:40 36.0 120 20 208/147 (167) 91 OxyMask 10.0 I & O 07/16/20 07:00 Intake Total 1000 ml Output Total 2100 ml Balance -1100 ml Height & Weight Height: 5'6.00" Weight: 318lbs. 3.2oz. 144.655687vl; 43.01 BMI Method: General Appearance: Chronically ill, Moderate Distress, Obese HEENT: Pharynx Normal, Moist Mucous Membranes Neck: Full Range of Motion, Normal Inspection Respiratory: No Accessory Muscle Use, No Respiratory Distress, Decreased Breath Sounds Cardiovascular: Normal Peripheral Pulses, Tachycardia Capillary Refill: Less Than 3 Seconds Extremity: Normal Capillary Refill, Normal Inspection, Non Tender, No Calf Tenderness, Pedal Edema, Swelling (LE edema) Neurologic/Psychiatric: Alert, Oriented x3, No Motor/Sensory Deficits Skin: Normal Color, Warm/Dry Results Lab Laboratory Tests 07/15/20 06:45 07/16/20 02:36 Assessment/Plan Assessment/Plan Respiratory distress with hypoxia secondary to pulmonary edema and CHF -Check PCT -Give Lasix 80mg X 1 -Repeat CXR Pulmonary edema r/o PNA -Start Zosyn -Check PCT -- Negative CHF EF 45% with hypoxia -Cardiology following Hemoptysis - Onset was after heart cath -- Now resolved -Monitor - bilateral LE dopplers -- negative Hyperglycemia -Add Levemir 10units x 1 Acute STEMI s/p cath CAD Never smoker DM II HTN Morbid Obestiy JHONNY BRYANT DO Jul 16, 2020 05:13
[2020-07-16] MEDS ORDERED: FUROSEMIDE 40 MG/4 ML INJ (LASIX) IVP ONE (05:15)
--- NOTE | 2020-07-16 06:19 | Diagnostic Imaging Report ---
INDICATION: Shortness of breath COMPARISON: 07/15/2020 FINDINGS: Single view of the chest demonstrates cardiac enlargement with persistent but decreased pulmonary infiltrates. New and/or increasing effusion is seen in the right base. There is no pneumothorax. IMPRESSION: 1. Slightly improved aeration 2. New and/or increasing effusion right base Dictated by: Dictated on workstation # [id number]
[2020-07-16] MEDS: PIPERACILLIN/TAZOBACTAM (BULK) 4.5 GM in NS (IVPB) 100 ML IV SCH ×3 (06:35→20:53)
[2020-07-16] MEDS: ASPIRIN 81 MG CHEW (CHILDREN'S ASA) PO SCH (07:55)
[2020-07-16] MEDS: CLOPIDOGREL 75 MG (PLAVIX) TABLET PO SCH (07:55)
[2020-07-16] MEDS ORDERED: ATOR80TA76 PO (07:56)
[2020-07-16] MEDS ORDERED: ASPI81TA64 PO (07:56)
[2020-07-16] MEDS: meTOprolol SUCCINATE 100 MG (TOPROL XL) TAB PO SCH ×2 (07:56→20:54)
[2020-07-16] MEDS ORDERED: LISI20TA26 PO (07:56)
[2020-07-16] MEDS ORDERED: METO200T48 PO (07:56)
[2020-07-16] MEDS ORDERED: CLOP75TA28 PO (07:56)
[2020-07-16] MEDS ORDERED: CLOPIDOGREL 75 MG (PLAVIX) TABLET PO SCH (09:00)
[2020-07-16] MEDS ORDERED: lisINopril 20 MG (PRINIVIL) TABLET PO SCH ×2 (09:00)
[2020-07-16] MEDS ORDERED: ASPIRIN 81 MG CHEW (CHILDREN'S ASA) PO SCH (09:00)
[2020-07-16] MEDS ORDERED: meTOprolol SUCCINATE 100 MG (TOPROL XL) TAB PO SCH ×3 (09:00)
--- NOTE | 2020-07-16 09:39 | Cardiology Progress Note ---
Subjective Date Seen by Provider: Jul 16, 2020 Time Seen by Provider: 09:36 Subjective/Events-last exam Patient is sitting at bedside, feeling better, still having some shortness of breath. No chest pain Review of Systems General: No Chills, No Night Sweats, No Fatigue, No Malaise, No Appetite, No Other HEENT: No Head Aches, No Visual Changes, No Eye Pain, No Ear Pain, No Dysphasia, No Sinus Congestion, No Post Nasal Drip, No Sore Throat, No Other Pulmonary: No Dyspnea, No Cough, No Pleuritic Chest Pain, No Other Cardiovascular: No: Chest Pain, Palpitations, Orthopnea, Paroxysmal Noc. Dyspnea, Edema, Lt Headedness, Other Objective-Cardiology Exam Last Set of Vital Signs Vital Signs 07/15/20 07/16/20 07/16/20 07/16/20 14:24 07:23 08:00 08:58 Temp 36.4 Pulse 90 Resp 35 B/P (MAP) 100/91 (94) Pulse Ox 95 O2 Delivery High Flow N/C O2 Flow Rate 6.00 FiO2 60 Capillary Refill : Less Than 3 Seconds I&O Intake and Output 07/16/20 00:00 Intake Total 900 ml Output Total 1775 ml Balance -875 ml Intake Oral 780 ml IV Total 120 ml Output Urine Total 1775 ml Daily Weight Change No General: Alert, Oriented X3, Cooperative HEENT: Atraumatic, PERRLA Neck: Supple, No JVD, No Thyromegaly Lungs: Clear to Auscultation, Normal Air Movement Heart: Regular Rate, Normal S1, Normal S2, No Murmurs Abdomen: Normal Bowel Sounds, Soft, No Tenderness, No Hepatosplenomegaly, No Masses Extremities: No Clubbing, No Cyanosis, No Edema, Normal Pulses, No Tenderness/Swelling Skin: No Rashes, No Breakdown, No Significant Lesion Neuro: Normal Gait, Normal Speech, Strength at 5/5 X4 Ext, Normal Tone, Sensation Intact Psych/Mental Status: Mental Status NL, Mood NL Results Lab Laboratory Tests 07/16/20 02:36 A/P-Cardiology Admission Diagnosis Acute ST elevation of cardiac infarction Coronary artery disease Congestive heart failure, acute left ventricular systolic dysfunction, ischemic cardiomyopathy Hypertension Hyperlipidemia Assessment/Plan Acute ST elevation myocardial infarction on 2020 status post emergency cardiac catheterization and stenting to the LAD using a Xience 2.75 x 23 mm deployed at 20 lucas, 30-40 percent stenosis in the circumflex and right coronary artery, elevated left ventricular end-diastolic pressure. Patient was started on aspirin and Plavix, educated on compliance with medication. Congestive heart failure, acute left ventricular systolic dysfunction, ischemic cardiomyopathy, reported ejection fraction 45 percent per angiogram. Started on metoprolol and lisinopril. I am changing to losartan and evaluate 2-D echo. Next Shortness of breath, questionable pulmonary edema versus early pneumonia, started on Zosyn empirically, I will add Lasix 40 mg IV twice a day. Evaluate 2-D echo. Hyperlipidemia, started on Lipitor 80 mg daily. Diabetes mellitus, managed by primary care team next Morbid obesity, BMI 43, we discussed weight loss and diet control Questionable underlying sleep apnea. We'll consider sleep study as an outpatient Clinical Quality Measures AMI/AHF: ASA po Prior to arrival: Yes (81) ADITYA MANDEL MD Jul 16, 2020 09:39
[2020-07-16] MEDS: inSUlin ASPART (NovoLOG) 1 UNIT/0.01 ML (CHARGE PER UNIT) SC SCH ×3 (10:45→20:54)
[2020-07-16] MEDS: LOSARTAN 100 MG (COZAAR) TABLET PO SCH (10:45)
--- NOTE | 2020-07-16 12:55 | Progress Note - Hospitalist ---
DEQUAN FELIZ MED STUDENT 07/16/20 1255: Subjective HPI/CC On Admission Date Seen by Provider: Jul 16, 2020 Time Seen by Provider: 08:15 CC: DM management HPI: This is a 55yoWM from [facility] who presented with STEMI and was taken to dairy lab technician and stent placed. Patient has a h/o DM and CHF and is disabled and stopped taking all of his meds 4 years ago. Patient is very non- compliant with sheath restrictions following cath procedure. Patient is not interested in insulin or any other medication and treatment so will try out best to manage this complex patient Subjective/Events-last exam Pt awake and sitting on edge of bed upon entry. Pt is in much better spirits today and less agitated in comparison to yesterday. Pt states that this is the best hes felt in a long time. Notes still SOB, but denies chest pain or palpitations. Pt also denies further hemoptysis from yesterday. Mentions that Dr. Mann said he would be moving to cardiac step down. Pt is very pleasant to speak with and interested in going home soon. Review of Systems General: No Chills, No Fatigue HEENT: No Head Aches, No Dysphasia Pulmonary: Dyspnea, Cough Cardiovascular: No: Chest Pain, Palpitations Gastrointestinal: No: Nausea, Vomiting, Abdominal Pain Genitourinary: No Dysuria; Frequency (secondary to diuretics); No Hematuria Musculoskeletal: No: back pain, leg pain Neurological: No: Weakness, Numbness Objective Exam Vital Signs Vital Signs Date Time Temp Pulse Resp B/P (MAP) Pulse Ox O2 Delivery O2 Flow Rate FiO2 07/16/20 12:38 84 07/16/20 12:00 30 105/77 (86) 91 High Flow N/C 6.00 07/16/20 11:11 36.4 07/15/20 14:24 60 Capillary Refill : Less Than 3 Seconds General Appearance: No Apparent Distress, Obese HEENT: PERRL/EOMI, Moist Mucous Membranes Neck: Full Range of Motion, Normal Inspection, Non Tender, Supple Respiratory: Chest Non Tender, No Accessory Muscle Use, No Respiratory Distress, Crackles, Decreased Breath Sounds, Wheezing Cardiovascular: No Gallop, No Murmur, Tachycardia Gastrointestinal: Non Tender, Soft Rectal: Deferred Back: Normal Inspection, No Vertebral Tenderness Extremity: Non Tender, No Calf Tenderness, Pedal Edema, Swelling Neurologic/Psychiatric: Alert, Oriented x3, No Motor/Sensory Deficits, Normal Mood/Affect Skin: Normal Color, Warm/Dry Lymphatic: No Adenopathy (cervical, supraclavicular, axillary) Results/Procedures Lab Laboratory Tests 07/16/20 02:36 Patient resulted labs reviewed. Assessment/Plan Assessment and Plan Assess & Plan/Chief Complaint ASSESSMENT: Uncontrolled T2DM Post coronary stent placement (07/15) Right sided pneumonia HTN CHF PLAN: Continue novolog and levemir Monitor glucose Encourage ambulation and IS Logan bandage wrap LE for edema Dr. Mari ceja initiated for pneumonia, lasix for pulmonary edema Dr. Mann- move to cardiac step down Clinical Quality Measures AMI/AHF: ASA po Prior to arrival: Yes (81) ANA CROSS DO 07/17/202033: Subjective Subjective/Events-last exam Patient is much improved Checked meds and labs Patient wants to go home soon Review of Systems General: Fatigue Pulmonary: Dyspnea Objective Exam General Appearance: No Apparent Distress, WD/WN, Anxious, Chronically ill, Obe se Respiratory: No Accessory Muscle Use, No Respiratory Distress, Decreased Breath Sounds Cardiovascular: Regular Rate, Rhythm Neurologic/Psychiatric: Alert Assessment/Plan Assessment and Plan Assess & Plan/Chief Complaint Anti-platelet med Monitor O2 CXR reviewed Supervisory-Addendum Brief Verification & Attestation Participated in pt care: history, MDM, physical Personally performed: exam, history, MDM, supervision of care Care discussed with: Medical Student Procedures: n/a Results interpretation: Verified all documentation Verification and Attestation of Medical Student E/M Service A medical student performed and documented this service in my presence. I reviewed and verified all information documented by the medical student and made modifications to such information, when appropriate. I personally performed the physical exam and medical decision making. Ana Cross, Jul 17, 2020,20:32 DEQUAN FELIZ MED STUDENT Jul 16, 2020 12:55 ANA CROSS DO Jul 17, 2020 20:34
[2020-07-16] MEDS: FUROSEMIDE 40 MG/4 ML INJ (LASIX) IVP SCH (16:23)
[2020-07-17 03:46] LABS: HEMOGLOBIN 12.7 g/dL (13.3-17.7); MEAN PLATELET VOLUME 11.5 fL (9.0-12.2); WHITE BLOOD COUNT 15.2 10^3/uL (4.3-11.0)
[2020-07-17 03:57] LABS: ALBUMIN 3.2 GM/DL (3.2-4.5); CHLORIDE 97 MMOL/L (98-107); POTASSIUM 3.3 MMOL/L (3.6-5.0); SODIUM 135 MMOL/L (135-145)
[2020-07-17 03:58] LABS: CALCIUM 8.3 MG/DL (8.5-10.1)
[2020-07-17 03:59] LABS: GLUCOSE 281 MG/DL (70-105); TOTAL PROTEIN 6.3 GM/DL (6.4-8.2)
[2020-07-17 04:00] LABS: CARBON DIOXIDE 28 MMOL/L (21-32)
[2020-07-17 04:01] LABS: BILIRUBIN,TOTAL 0.7 MG/DL (0.1-1.0)
[2020-07-17 04:03] LABS: ALKALINE PHOSPHATASE 98 U/L (40-136); CREATININE SERUM 1.03 MG/DL (0.60-1.30); GFR ESTIMATED > 60
[2020-07-17 04:04] LABS: BUN/CREATININE RATIO 19
[2020-07-17 04:06] LABS: ALANINE AMINOTRANSFERASE 46 U/L (0-55)
[2020-07-17] MEDS: PIPERACILLIN/TAZOBACTAM (BULK) 4.5 GM in NS (IVPB) 100 ML IV SCH (06:16)
[2020-07-17] MEDS: inSUlin ASPART (NovoLOG) 1 UNIT/0.01 ML (CHARGE PER UNIT) SC SCH ×2 (06:16→11:42)
[2020-07-17] MEDS: FUROSEMIDE 40 MG/4 ML INJ (LASIX) IVP SCH (06:17)
--- NOTE | 2020-07-17 06:24 | Diagnostic Imaging Report ---
INDICATION: Heart disease. Comparison is made with prior examination from 07/16/2020. FINDINGS: There is cardiomegaly. There is some venous congestion. There are patchy bibasilar infiltrates. There is right pleural effusion. There is no pneumothorax. The mediastinum is unremarkable. IMPRESSION: Patchy bibasilar infiltrates, right greater than left, with a right pleural effusion. Cardiomegaly and mild central pulmonary venous congestion. Dictated by: Dictated on workstation # [id number]
[2020-07-17] MEDS: CLOPIDOGREL 75 MG (PLAVIX) TABLET PO SCH (08:18)
[2020-07-17] MEDS: ASPIRIN 81 MG CHEW (CHILDREN'S ASA) PO SCH (08:19)
[2020-07-17] MEDS: LOSARTAN 100 MG (COZAAR) TABLET PO SCH (08:19)
[2020-07-17] MEDS: meTOprolol SUCCINATE 100 MG (TOPROL XL) TAB PO SCH (08:19)
[2020-07-17] MEDS ORDERED: KCL 20 MEQ TAB (K-DUR) PO NR (09:00)
--- NOTE | 2020-07-17 10:12 | Discharge Inst-Post CATH ---
Discharge Inst-CATH/EP Problems Reviewed?: Yes Post Cardiac Cath/EP D/C Inst Follow Up/Plan Appointment with Dr Moses's office in 1-2 weeks <b>CARDIAC CATH/EP PROCEDURE DISCHARGE INSTRUCTIONS</b> ACTIVITY * Go Home directly and rest. * Limit activity of the leg (or wrist if it was used) for 7 days including aerobics, swimming, jogging, bicycling, etc. * Restrict stair-climbing for 7 days if possible, if not, climb up with your non-cath leg, then bring together on the same step. * Avoid lifting, pushing, pulling or excessive movement of the affected extremity for 7 days. * Customary sexual activity may be resumed after 2 days-use caution not to use a position that strains or causes pain to the affected extremity. * No driving for 24 hours. * NO SMOKING. * Avoid straining for bowel movements for 7 days. * Gentle walking on level ground is allowed. * Returning to work will depend on the type of procedure and the results. Your doctor will discuss this with you. CALL YOUR DOCTOR FOR ANY OF THE FOLLOWING: *If bleeding from the puncture site occurs- Apply gentle pressure to site with clean cloth and call your doctor or EMS. * If a knot or lump forms under the skin, increases in size, or causes pain. * If bruising appears to be worsening or moving further down your leg instead of disappearing. * Temperature above 101 F. CARE OF YOUR GROIN INCISION; * Bruising or purple discoloration of the skin near the puncture site is common. * You may shower only, no bathtub bathing for 5 days. Be careful to avoid slipping as your leg may feel stiff. * If a closure device was used on your femoral artery, please see the attached guide regarding care of the device and your leg. * Leave dressing on FOR 24 hours. CARE OF YOUR WRIST INCISION; * Bruising or purple discoloration of the skin near the puncture site is common. * You may shower. * DO NOT submerge wrist. * Leave dressing on FOR 24 hours. ADITYA MANDEL MD Jul 17, 2020 10:12 am
[2020-07-17] MEDS ORDERED: POTA-53 PO (10:15)
[2020-07-17] MEDS ORDERED: FURO-124 PO (10:15)
--- NOTE | 2020-07-17 10:20 | Cardiology Discharge Summary ---
Discharge Summary Hospital Course Problems Reviewed?: Yes Hospital Course Date of Admission: Admission Diagnosis : Family Physician/Provider: [place] Date of Discharge: 07/17/20 Discharge Diagnosis: [Acute ST elevation myocardial infarction excellent congestive heart failure Acute left ventricular systolic dysfunction, ischemic cardiomyopathy Hypertension Hyperlipidemia ] Hospital Course: [ Acute ST elevation myocardial infarction on 2020 status post emergency c ardiac catheterization and stenting to the LAD using a Xience 2.75 x 23 mm deployed at 20 lucas, 30-40 percent stenosis in the circumflex and right coronary artery, elevated left ventricular end-diastolic pressure. Patient was started on aspirin and Plavix, educated on compliance with medication. Congestive heart failure, acute left ventricular systolic dysfunction, ischemic cardiomyopathy, reported ejection fraction 45 percent per angiogram. cont Shortness of breath, responded to Lasix, continue on Lasix and potassium Hyperlipidemia, started on Lipitor 80 mg daily. Diabetes mellitus, managed by primary care team next Morbid obesity, BMI 43, we discussed weight loss and diet control Questionable underlying sleep apnea. We'll consider sleep study as an outpatient] Labs and Pending Lab Test: Laboratory Tests 07/16/20 10:27: Glucometer 262H 07/16/20 15:15: Glucometer 289H 07/16/20 20:15: Glucometer 130H 07/17/20 03:06: White Blood Count 15.2H, Red Blood Count 4.38, Hemoglobin 12.7L, Hematocrit 41, Mean Corpuscular Volume 93, Mean Corpuscular Hemoglobin 29, Mean Corpuscular Hemoglobin Concent 31L, Red Cell Distribution Width 13.7, Platelet Count 254, Mean Platelet Volume 11.5, Sodium Level 135, Potassium Level 3.3L, Chloride Level 97L, Carbon Dioxide Level 28, Anion Gap 10, Blood Urea Nitrogen 20H, Creatinine 1.03, Estimat Glomerular Filtration Rate > 60, BUN/Creatinine Ratio 19, Glucose Level 281H, Calcium Level 8.3L, Corrected Calcium 8.9, Total Bilirubin 0.7, Aspartate Amino Transf (AST/SGOT) 67H, Alanine Aminotransferase (ALT/SGPT) 46, Alkaline Phosphatase 98, Total Protein 6.3L, Albumin 3.2 Home Meds Active K-Tab ER (Potassium Chloride) 20 Meq Tablet.er 20 Meq PO DAILY Lasix (Furosemide) 40 Mg Tablet 40 Mg PO DAILY Lisinopril 20 Mg Tablet 20 Mg PO DAILY Metoprolol Succinate 200 Mg Tab.er.24h 200 Mg PO BID Children's Aspirin (Aspirin) 81 Mg Tab.chew 81 Mg PO DAILY Atorvastatin Calcium 80 Mg Tablet 80 Mg PO HS Clopidogrel (Clopidogrel Bisulfate) 75 Mg Tablet 75 Mg PO DAILY Reported Tylenol Extra Strength (Acetaminophen) 500 Mg Tablet 1,000 Mg PO Q8H PRN Aspirin EC (Aspirin) 81 Mg Tablet.dr 81 Mg PO DAILY Assessment/Pt DC Instructions Arrangement for follow-up with Dr. Moses in one to 2 weeks Discharge Physical Examination Allergies: Coded Allergies: No Known Drug Allergies (Unverified , 09/01/13) General Appearance: No Apparent Distress, WD/WN HEENT: PERRL/EOMI, TMs Normal, Normal ENT Inspection, Pharynx Normal Respiratory: Chest Non Tender, Lungs Clear, Normal Breath Sounds, No Accessory Muscle Use, No Respiratory Distress Cardiovascular: Regular Rate, Rhythm, No Edema, No Gallop, No JVD, No Murmur, Normal Peripheral Pulses Gastrointestinal: Normal Bowel Sounds, No Organomegaly, No Pulsatile Mass, Non Tender, Soft Extremity: Normal Capillary Refill, Normal Inspection Skin: Normal Color, Warm/Dry Neurologic/Psychiatric: Alert, Oriented x3, No Motor/Sensory Deficits, Normal Mood/Affect Clinical Quality Measures AMI/AHF: ASA po Prior to arrival: Yes (81) ADITYA MANDEL MD Jul 17, 2020 10:20 am
[2020-07-17] MEDS ORDERED: GLBR2.5T PO (11:27)
--- NOTE | 2020-07-17 11:28 | Progress Note - Hospitalist ---
Subjective HPI/CC On Admission Date Seen by Provider: Jul 17, 2020 Time Seen by Provider: 11:00 CC: DM management HPI: This is a 55[facility] who presented with STEMI and was taken to shop lab[facility] and stent placed. Patient has a h/o DM and CHF and is disabled and stopped taking all of his meds 4 years ago. Patient is very non- compliant with sheath restrictions following cath procedure. Patient is not interested in insulin or any other medication and treatment so will try out best to manage this complex patient Subjective/Events-last exam Patient much improved Ready for DC No abx required at DC Sent in Rx for OHA Review of Systems General: Fatigue Objective Exam Vital Signs Vital Signs Date Time Temp Pulse Resp B/P (MAP) Pulse Ox O2 Delivery O2 Flow Rate FiO2 07/17/20 12:59 76 07/17/20 12:00 38 92 High Flow N/C 3.00 07/17/20 11:58 36.5 07/15/20 14:24 60 Capillary Refill : Less Than 3 Seconds General Appearance: No Apparent Distress, WD/WN, Chronically ill Respiratory: Chest Non Tender, Lungs Clear, Normal Breath Sounds, No Accessory Muscle Use, No Respiratory Distress Cardiovascular: Regular Rate, Rhythm, No Edema, No Gallop, No JVD, No Murmur, Normal Peripheral Pulses Neurologic/Psychiatric: Alert, Oriented x3, No Motor/Sensory Deficits, Normal Mood/Affect Results/Procedures Lab Patient resulted labs reviewed. 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 Diagnosis/Problems Diagnosis/Problems (1) Acute ST elevation myocardial infarction (STEMI) of anterior wall Clinical Quality Measures AMI/AHF: ASA po Prior to arrival: Yes (81) BINTA CROSS DO Jul 17, 2020 11:28
== END 2020-07-17 13:45 | disposition home or self-care (01) ==
LOC: EDUNIT# 06:37 → ER 06:39 → SDC 07:54 → ICU 08:31 → SDC 07-17 13:45
PROVIDERS: ATTEND Internal Medicine Cardiovascular Disease
DX: I21.3 ST elevation (STEMI) myocardial infarction of unspecified site (principal); I11.9 Hypertensive heart disease without heart failure; E78.5 Hyperlipidemia, unspecified; I50.21 Acute systolic (congestive) heart failure; E11.9 Type 2 diabetes mellitus without complications; E66.01 Morbid (severe) obesity due to excess calories; Z68.43 Body mass index [BMI] 50.0-59.9, adult; Z79.899 Other long term (current) drug therapy; Z79.82 Long term (current) use of aspirin; I25.10 Atherosclerotic heart disease of native coronary artery without angina pectoris; Z79.4 Long term (current) use of insulin; Z80.9 Family history of malignant neoplasm, unspecified
CPT/HCPCS: 71045 ×3; 80053 ×2; 82805; 82962; 83690; 83735; 83874; 83880; 84145; 84484; 85007; 85027 ×2; 85610; 85730; 93005 ×3; 93041; 93306; 93458; 93970; 99285; C1725; C1769; C1874; C1887; C1894; C9606; 36415

== ENCOUNTER 2020-07-20 15:32 | Inpatient (IN) | payer MEDICARE, MEDICAID ==
[~2020-07-20] VITALS: Ht 167.7 cm; Wt 136.3 kg
[~2020-07-20 15:32] MED LIST changes: +ACET-2267 PO; +ASPI-1238 PO; +ASPI81TA64 PO; +ATOR80TA76 PO; +CLOP75TA28 PO; +FURO-124 PO; +GLBR2.5T PO; +LISI20TA26 PO; +METO200T48 PO; +POTA-53 PO
[2020-07-20] MEDS ORDERED: ASPIRIN 81 MG CHEW (CHILDREN'S ASA) ONE (15:57)
[2020-07-20 16:03] LABS: BASOPHILS % (AUTO) 0 % (0-10); EOSINOPHILS # (AUTO) 0.1 10^3/uL (0.0-0.3); EOSINOPHILS % (AUTO) 1 % (0-10); HEMATOCRIT 42 % (40-54); HEMOGLOBIN 13.4 g/dL (13.3-17.7); LYMPHOCYTES # (AUTO) 3.1 10^3/uL (1.0-4.0); LYMPHOCYTES % (AUTO) 24 % (12-44); MEAN CORPUSCULAR HEMOGLOBIN 30 pg (25-34); MEAN CORPUSCULAR HGB CONC 32 g/dL (32-36); MEAN CORPUSCULAR VOLUME 94 fL (80-99); MEAN PLATELET VOLUME 10.9 fL (9.0-12.2); MONOCYTES # (AUTO) 1.2 10^3/uL (0.0-1.0); MONOCYTES % (AUTO) 9 % (0-12); NEUTROPHILS # (AUTO) 8.4 10^3/uL (1.8-7.8); NEUTROPHILS % (AUTO) 65 % (42-75); PLATELET COUNT 315 10^3/uL (130-400)
--- NOTE | 2020-07-20 16:03 | ED Respiratory ---
General Chief Complaint: Respiratory Problems Stated Complaint: WANTS TO BE READMITED PER DR MANN Source: patient, RN/MD Exam Limitations: no limitations History of Present Illness Date Seen by Provider: Jul 20, 2020 Time Seen by Provider: 15:30 Initial Comments Patient is a 55-year-old male who presents to the emergency department today with a chief complaint of shortness of breath. Patient states that he started getting short of breath yesterday. He states that he noticed it in the afternoon. He states that he woke up this morning and had a cough productive of some yellowish sputum. Patient denies any fevers or chills. No recent congestion. He denies chest pain. Denies chest pressure or tightness. Patient has a history of fairly recent acute coronary syndrom with a stent to the LAD. He is followed by Dr. Mann. Patient presented to his office this afternoon for routine follow-up appointment and was found to be profoundly dyspneic and hypoxic.. Patient was sent to the emergency room for further evaluation management Patient states that he has fairly consistent swelling in his lower extremities. He states that he takes Lasix daily, 40 mg. He took it this morning. Patient states he has been taking his Plavix as prescribed. Again he denies any chest pain, pressure, tightness. No back pain. No abdominal pain. Timing/Duration: yesterday Severity: moderate Modifying Factors: Worse With Activity, Worse With Lying Down Associated Symptoms: shortness of breath Allergies and Home Medications Allergies Coded Allergies: No Known Drug Allergies (Unverified , 09/01/13) Home Medications Acetaminophen 500 Mg Tablet, 1,000 MG PO Q8H PRN for PAIN-MILD (1-4), (Reported) Aspirin 81 Mg Tab.chew, 81 MG PO DAILY Prescribed by: FRANTZ REDDY on 07/16/20 075 Atorvastatin Calcium 80 Mg Tablet, 80 MG PO HS Prescribed by: FRANTZ REDDY on 07/16/20 075 Clopidogrel Bisulfate 75 Mg Tablet, 75 MG PO DAILY Prescribed by: FRANTZ REDDY on 07/16/20 075 Furosemide 40 Mg Tablet, 40 MG PO DAILY Prescribed by: ADITYA MANN on 07/17/20 1015 Glyburide 2.5 Mg Tablet, 2.5 MG PO BID Prescribed by: BINTA CROSS on 07/17/20 1127 Lisinopril 20 Mg Tablet, 20 MG PO DAILY Prescribed by: FRANTZ REDDY on 07/16/20 0756 Metoprolol Succinate 200 Mg Tab.er.24h, 200 MG PO BID Prescribed by: FRANTZ REDDY on 07/16/20 0756 Potassium Chloride 20 Meq Tablet.er, 20 MEQ PO DAILY Prescribed by: ADITYA MANN on 07/17/20 1015 Patient Home Medication List Home Medication List Reviewed: Yes Review of Systems Review of Systems Constitutional: see HPI EENTM: no symptoms reported Respiratory: cough, short of breath Cardiovascular: no symptoms reported, edema, Hx of Intervention Gastrointestinal: no symptoms reported Genitourinary: no symptoms reported Musculoskeletal: no symptoms reported Skin: no symptoms reported All Other Systems Reviewed Negative Unless Noted: Yes Past Emhmbwe-Mqxdke-Swscqe Hx Patient Social History Type Used: Smokeless Tobacco 2nd Hand Smoke Exposure: No Recent Hopitalizations: No Immunizations Up To Date Tetanus Booster (TDap): More than 5yrs Seasonal Allergies Seasonal Allergies: No Past Medical History Surgeries: Yes (HEART CATH) Respiratory: No Cardiac: Yes (CHF) Coronary Artery Disease, Hypertension Neurological: No Reproductive Disorders: No Genitourinary: No Gastrointestinal: No Musculoskeletal: No Endocrine: No Diabetes, Insulin dep HEENT: No Cancer: No Psychosocial: No Integumentary: No Blood Disorders: No Family Medical History Cancer Cataract Chest pain Congenital heart disease Congestive heart failure Family history: Arthritis Family history: Asthma Family history: Cardiovascular disease Family history: Coronary thrombosis Family history: Diabetes mellitus Family history: Hypertension Heart disease History of - respiratory disease Hypercholesterolemia Kidney disease Myocardial infarction No Family History of: Abdominal aortic aneurysm Caswell's disease Alcoholism Aphasia Cancer of colon Cystic fibrosis Dementia Dysphagia Family history: Allergy Family history: Alzheimer's disease Family history: Breast disease Family history: Gastrointestinal disease Family history: Glaucoma Family history: Osteoporosis Family history: Thyroid disorder Headache Hearing loss Hereditary disease History of - anemia History of drug abuse Human immunodeficiency virus (HIV) seropositivity Infertile Malignant neoplasm of lung Parkinson's disease Prostate cancer Psychotic disorder Seizure disorder Stroke Tuberculosis Visual impairment Physical Exam Vital Signs - First Documented 07/20/20 15:38 Temp 36.8 Pulse 99 Resp 31 B/P (MAP) 173/144 (154) Pulse Ox 94 O2 Delivery Nasal Cannula O2 Flow Rate 2.00 Capillary Refill : Height: 5'6.00" Weight: 318lbs. 3.2oz. 144.866025cj; 43.01 BMI Method: General Appearance: WD/WN, no apparent distress Eyes: Bilateral Eye Normal Inspection, Bilateral Eye PERRL, Bilateral Eye EOMI HEENT: PERRL/EOMI Respiratory: decreased breath sounds, accessory muscle use, rales (at bases bilaterally) Cardiovascular: regular rate, rhythm, gallop/S3 Gastrointestinal: non tender, soft Extremities: normal range of motion, pedal edema, swelling Neurologic/Psychiatric: alert, normal mood/affect, oriented x 3 Skin: normal color, warm/dry Progress/Results/Core Measures Suspected Sepsis SIRS Temperature: Pulse: Respiratory Rate: Laboratory Tests 07/20/20 15:45: White Blood Count 13.0H Blood Pressure / Mean: Laboratory Tests 07/20/20 15:45: Creatinine 1.08, INR Comment 1.2, Platelet Count 315 Results/Orders Lab Results Laboratory Tests Test 07/20/20 15:45 Range/Units White Blood Count 13.0 H 4.3-11.0 10^3/uL Red Blood Count 4.52 4.30-5.52 10^6/uL Hemoglobin 13.4 13.3-17.7 g/dL Hematocrit 42 40-54 % Mean Corpuscular Volume 94 80-99 fL Mean Corpuscular Hemoglobin 30 25-34 pg Mean Corpuscular Hemoglobin Concent 32 32-36 g/dL Red Cell Distribution Width 14.1 10.0-14.5 % Platelet Count 315 130-400 10^3/uL Mean Platelet Volume 10.9 9.0-12.2 fL Immature Granulocyte % (Auto) 1 % Neutrophils (%) (Auto) 65 42-75 % Lymphocytes (%) (Auto) 24 12-44 % Monocytes (%) (Auto) 9 0-12 % Eosinophils (%) (Auto) 1 0-10 % Basophils (%) (Auto) 0 0-10 % Neutrophils # (Auto) 8.4 H 1.8-7.8 10^3/uL Lymphocytes # (Auto) 3.1 1.0-4.0 10^3/uL Monocytes # (Auto) 1.2 H 0.0-1.0 10^3/uL Eosinophils # (Auto) 0.1 0.0-0.3 10^3/uL Basophils # (Auto) 0.0 0.0-0.1 10^3/uL Immature Granulocyte # (Auto) 0.2 H 0.0-0.1 10^3/uL Prothrombin Time 15.3 H 12.2-14.7 SEC INR Comment 1.2 0.8-1.4 Activated Partial Thromboplast Time 31 24-35 SEC Sodium Level 137 135-145 MMOL/L Potassium Level 3.7 3.6-5.0 MMOL/L Chloride Level 99 98-107 MMOL/L Carbon Dioxide Level 25 21-32 MMOL/L Anion Gap 13 5-14 MMOL/L Blood Urea Nitrogen 18 7-18 MG/DL Creatinine 1.08 0.60-1.30 MG/DL Estimat Glomerular Filtration Rate > 60 BUN/Creatinine Ratio 17 Glucose Level 285 H 70-105 MG/DL Calcium Level 8.9 8.5-10.1 MG/DL Total Creatine Kinase 256 H 30-200 U/L Creatine Kinase MB 3.3 <6.6 NG/ML Myoglobin 60.5 10.0-92.0 NG/ML Troponin I 9.670 *H <0.028 NG/ML B-Type Natriuretic Peptide 760.7 H <100.0 PG/ML My Orders Orders - KAIT PARDO MD Cbc With Automated Diff (07/20/20 15:53) Basic Metabolic Panel (07/20/20 15:53) Creatine Kinase (07/20/20 15:53) Creatine Kinase Mb (07/20/20 15:53) Troponin I (07/20/20 15:53) Ekg Tracing (07/20/20 15:53) Protime With Inr (07/20/20 15:53) Partial Thromboplastin Time (07/20/20 15:53) Aspirin Chewable Tablet (Baby Aspirin Ch (07/21/20 09:00) Nitroglycerin 0.4 Mg Btl 25's (Nitrostat (07/20/20 16:00) Chest 1 View, Ap/Pa Only (07/20/20 15:53) BNP (07/20/20 15:53) Aspirin Chewable Tablet (Baby Aspirin Ch (07/20/20 15:57) Metoprolol Tartrate Injection (Lopressor (07/20/20 16:15) Furosemide Injection (Lasix Injection) (07/20/20 16:30) Enoxaparin Injection (Lovenox Injection) (07/20/20 16:30) Metoprolol Tartrate Injection (Lopressor (07/20/20 17:00) Metoprolol Tartrate Injection (Lopressor (07/20/20 17:30) Medications Given in ED Vital Signs/I&O 07/20/20 15:38 Temp 36.8 Pulse 99 Resp 31 B/P (MAP) 173/144 (154) Pulse Ox 94 O2 Delivery Nasal Cannula O2 Flow Rate 2.00 Capillary Refill : Progress Note : Time: 15:58 Progress Note Patient case discussed with Dr. Mann. He states he will be in the department within the next 10 minutes to evaluate the patient. 1606 Patient refused to take nitroglycerin, did take his aspirin however [address] Mann Know about the elevated troponin at this time. ECG Initial ECG Impression Date: Jul 20, 2020 Initial ECG Impression Time: 15:35 Initial ECG Rhythm: Normal Sinus Initial ECG Intervals: Normal Comment ST segment elevation in V2 V3 and V4; appears similar to old EKG Diagnostic Imaging Diagonstic Imaging: Xray Plain Films/CT/US/NM/MRI: chest Comments Chest x-ray reviewed by me, cardiomegaly with increased pulmonary vascular congestion consistent with CHF exacerbation Critical Care Note Critical Care Start Time: 15:30 Stop Time: 16:45 Total Time (minutes) 1 hour critical care time in the evaluation and management of this gentleman with hypoxia, oxygen saturations at 83%, acute coronary syndrome with an elevated troponin; time includes management of his hypoxia review of the medical record management of the acute coronary syndrome discussion with cardiology and hospitalist service Departure Communication (Admissions) Time/Spoke to Admitting Phy: 16:[address] Lyon Impression Primary Impression: Acute coronary syndrome with high troponin Additional Impressions: Hypertensive emergency Hypoxemia Disposition: ADMITTED INPATIENT Condition: Stable Admissions Decision to Admit Reason: Admit from ER (General) Decision to Admit/Date: Jul 20, 2020 Time/Decision to Admit Time: 16:51 Departure-Patient Inst. Referrals: [facility] [place] (PCP/Family) Primary Care Physician KAIT PARDO MD Jul 20, 2020 16:03
[2020-07-20] MEDS: NITROGLYCERIN 0.4 MG SL TABS BTL 25'S SL PRN ×2 (16:04→16:21)
[2020-07-20] MEDS ORDERED: meTOprolol 5 MG/5 ML (LOPRESSOR) VIAL IV ONE ×3 (16:15→17:30)
[2020-07-20 16:24] LABS: BUN/CREATININE RATIO 17; CALCIUM 8.9 MG/DL (8.5-10.1); CARBON DIOXIDE 25 MMOL/L (21-32); CHLORIDE 99 MMOL/L (98-107); CREATINE KINASE 256 U/L (30-200); CREATININE SERUM 1.08 MG/DL (0.60-1.30); GFR ESTIMATED > 60; GLUCOSE 285 MG/DL (70-105); INR 1.2 (0.8-1.4); POTASSIUM 3.7 MMOL/L (3.6-5.0); PROTHROMBIN TIME PATIENT 15.3 SEC (12.2-14.7); SODIUM 137 MMOL/L (135-145)
[2020-07-20] MEDS ORDERED: ENOXAPARIN 60 MG/0.6 ML (LOVENOX) SYR SC ONE (16:30)
[2020-07-20] MEDS ORDERED: FUROSEMIDE 40 MG/4 ML INJ (LASIX) IVP ONE (16:30)
[2020-07-20 16:31] LABS: CREATINE KINASE MB 3.3 NG/ML (<6.6)
--- NOTE | 2020-07-20 16:48 | Diagnostic Imaging Report ---
INDICATION: Shortness of breath. COMPARISON: July 17, 2020. TECHNIQUE: Single radiograph of the chest dated July 20, 2020. FINDINGS: The cardiac silhouette is enlarged, similar to the prior exam. Central pulmonary vascular congestion is present. Diffuse prominence of the pulmonary interstitium, slightly improved since the prior examination. Tiny bibasilar pleural effusions, improved on the right. No pneumothorax. Osseous structures appear stable. IMPRESSION: Cardiomegaly with persistent central pulmonary vascular congestion. Improved interstitial opacities, favored to relate to improving interstitial edema. Interstitial infiltrate would be an additional consideration. Improving though persisting tiny bibasilar pleural effusions. Dictated by: Dictated on workstation # [id number]
[2020-07-20] MEDS ORDERED: meTOprolol 5 MG/5 ML (LOPRESSOR) VIAL IV NR (17:45)
[2020-07-20 17:56] VITALS: BP 143/124
[2020-07-20] MEDS: ENOXAPARIN 300 MG/3 ML (LOVENOX) MULTI-DOSE VIAL SQ SCH (17:57)
[2020-07-20] MEDS: meTOproloL SUCCINATE 50 MG (TOPROL XL) TAB PO SCH (18:11)
[2020-07-20] MEDS ORDERED: ONDANSETRON 4 MG/2 ML (SDV) Z0FRAN IV PRN (18:30)
[2020-07-21 03:54] LABS: BASOPHILS % (AUTO) 0 % (0-10); EOSINOPHILS # (AUTO) 0.1 10^3/uL (0.0-0.3); EOSINOPHILS % (AUTO) 1 % (0-10); HEMATOCRIT 41 % (40-54); LYMPHOCYTES # (AUTO) 4.1 10^3/uL (1.0-4.0); LYMPHOCYTES % (AUTO) 28 % (12-44); MEAN CORPUSCULAR HEMOGLOBIN 30 pg (25-34); MEAN CORPUSCULAR HGB CONC 31 g/dL (32-36); MEAN CORPUSCULAR VOLUME 94 fL (80-99); MEAN PLATELET VOLUME 11.1 fL (9.0-12.2); MONOCYTES # (AUTO) 1.2 10^3/uL (0.0-1.0); MONOCYTES % (AUTO) 8 % (0-12); NEUTROPHILS # (AUTO) 9.1 10^3/uL (1.8-7.8); NEUTROPHILS % (AUTO) 62 % (42-75); PLATELET COUNT 289 10^3/uL (130-400); WHITE BLOOD COUNT 14.7 10^3/uL (4.3-11.0)
[2020-07-21 04:11] LABS: ALANINE AMINOTRANSFERASE 40 U/L (0-55); ALBUMIN 3.6 GM/DL (3.2-4.5); ALKALINE PHOSPHATASE 106 U/L (40-136); BILIRUBIN,TOTAL 1.1 MG/DL (0.1-1.0); BUN/CREATININE RATIO 18; CALCIUM 8.7 MG/DL (8.5-10.1); CARBON DIOXIDE 26 MMOL/L (21-32); CHLORIDE 99 MMOL/L (98-107); CREATININE SERUM 0.97 MG/DL (0.60-1.30); GFR ESTIMATED > 60; MAGNESIUM 1.8 MG/DL (1.6-2.4); PHOSPHORUS 4.3 MG/DL (2.3-4.7); POTASSIUM 3.6 MMOL/L (3.6-5.0); SODIUM 138 MMOL/L (135-145); TOTAL PROTEIN 7.3 GM/DL (6.4-8.2)
[2020-07-21 04:17] LABS: ANISOCYTOSIS SLIGHT; BAND NEUTROPHILS 2 %; BASOPHILS % (MANUAL) 0 %; EOSINOPHILS % (MANUAL) 1 %; LYMPHOCYTES % (MANUAL) 25 %; METAMYELOCYTES % 1 %; MONOCYTES % (MANUAL) 4 %; NEUTROPHILS % (MANUAL) 67 %; POLYCHROMASIA SLIGHT
[2020-07-21 04:28] LABS: GLUCOSE 191 MG/DL (70-105)
[2020-07-21] MEDS: POTASSIUM CL 10MEQ/50ML IVPB 50 ML IV SCH ×2 (04:50→05:51)
[2020-07-21] MEDS: glyBURIDE 2.5 MG (MICRONASE) TAB PO SCH ×2 (05:46→17:18)
[2020-07-21] MEDS: ENOXAPARIN 300 MG/3 ML (LOVENOX) MULTI-DOSE VIAL SQ SCH ×2 (05:51→17:19)
[2020-07-21] MEDS: FUROSEMIDE 40 MG/4 ML INJ (LASIX) IVP SCH ×2 (05:51→17:19)
[2020-07-21] MEDS ORDERED: POTASSIUM CL 10MEQ/50ML IVPB 50 ML IV SCH (06:00)
[2020-07-21] MEDS ORDERED: KCL 20 MEQ TAB (K-DUR) PO SCH (06:00)
[2020-07-21] MEDS ORDERED: MAGNESIUM 1 GM/100 ML IVPB 100 ML IV SCH (06:00)
--- NOTE | 2020-07-21 06:26 | Diagnostic Imaging Report ---
INDICATION: Shortness of air. TIME OF EXAM: 3:21 AM Correlation is made with prior chest one day earlier. FINDINGS: Heart is enlarged. There is some improvement in the congestive changes since yesterday. No significant infiltrate or pneumothorax is seen. IMPRESSION: Improving congestive changes since exam one day earlier. Dictated by: Dictated on workstation # [id number]
[2020-07-21] MEDS ORDERED: CLOPIDOGREL 75 MG (PLAVIX) TABLET PO SCH (09:00)
[2020-07-21] MEDS: meTOproloL SUCCINATE 50 MG (TOPROL XL) TAB PO SCH (09:00)
[2020-07-21] MEDS ORDERED: lisINopril 20 MG (PRINIVIL) TABLET PO SCH (09:00)
[2020-07-21] MEDS ORDERED: LOSARTAN 100 MG (COZAAR) TABLET PO SCH (09:00)
[2020-07-21] MEDS ORDERED: ASPIRIN 81 MG CHEW (CHILDREN'S ASA) PO SCH ×2 (09:00)
[2020-07-21] MEDS: KCL 20 MEQ TAB (K-DUR) PO SCH ×2 (09:01→17:19)
--- NOTE | 2020-07-21 12:09 | History & Physical ---
ENRIQUE HOLBROOK MED STUDENT 07/21/20 1209: History of Present Illness History of Present Illness Reason for visit/HPI Prasanth is a 55 yo male that presented to the ER yesterday at 15:30 with the chief complaint of SOB that stated that morning and progressively became worse. Pt had a productive cough with yellowish sputum that started yesterday morning. Pt states that he had diarrhea but denies chest pain, tightness, or referred pain. Pt presented with bilateral lower extremity edema that he states is normal for him and controlled with Lasiks.Today he stated that he was feeling great on 4L of O2 and was ready to go home tomorrow. Pt is eating and drinking well and has no complaints with using the restroom. Pt has a FH of cancer, diabetes, and hypertension in his brother and sister. PMH is significant for acute coronary syndrome, which required a stent, that occurred last week and diabetes. Date of Admission Jul 20, 2020 at 17:23 Date Seen by a Provider: Jul 21, 2020 Time Seen by a Provider: 09:00 I consulted on this patient on 07/21/20 12:02 Attending Physician Lucina Lyon MD Admitting Physician Center/[facility] Consult Allergies and Home Medications Allergies Coded Allergies: No Known Drug Allergies (Unverified , 09/01/13) Home Medications Acetaminophen 500 Mg Tablet, 1,000 MG PO Q8H PRN for PAIN-MILD (1-4), (Reported) Aspirin 81 Mg Tab.chew, 81 MG PO DAILY, (Reported) Atorvastatin Calcium 80 Mg Tablet, 80 MG PO HS, (Reported) Clopidogrel Bisulfate 75 Mg Tablet, 75 MG PO DAILY, (Reported) Furosemide 40 Mg Tablet, 40 MG PO DAILY, (Reported) Lisinopril 20 Mg Tablet, 20 MG PO DAILY, (Reported) Metoprolol Succinate 200 Mg Tab.er.24h, 200 MG PO BID, (Reported) Potassium Chloride 20 Meq Tablet.er, 20 MEQ PO DAILY, (Reported) Past Lidnsij-Xgwugb-Tfsoas Hx Patient Social History Marrital Status: Number of Children: 1 Number of living children: 1 Employed/Student: unemployed Smoking Status: Former Smoker 2nd Hand Smoke Exposure: No Recent Hopitalizations: No Alcohol Use?: No Substance type: Nicotine Pt feels they are or have been: No Immunizations Up To Date Tetanus Booster (TDap): More than 5yrs Seasonal Allergies Seasonal Allergies: No Surgeries Yes (HEART CATH) Coronary Stent Respiratory No Cardiovascular Yes (CHF) Coronary Artery Disease, Hypertension Neurological No Reproductive System Hx Reproductive Disorders: No Genitourinary No Gastrointestinal No Musculoskeletal No Endocrine History of Endocrine Disorders: No Endocrine Disorders: Diabetes, Insulin dep HEENT History of HEENT Disorders: No Cancer No Psychosocial History of Psychiatric Problem: No Integumentary History of Skin or Integumenta: No Blood Transfusions History of Blood Disorders: No Family Medical History Family Hx: Cancer Cataract Chest pain Congenital heart disease Congestive heart failure Family history: Arthritis Family history: Asthma Family history: Cardiovascular disease Family history: Coronary thrombosis Family history: Diabetes mellitus Family history: Hypertension Heart disease History of - respiratory disease Hypercholesterolemia Kidney disease Myocardial infarction No Family History of: Abdominal aortic aneurysm Schleicher's disease Alcoholism Aphasia Cancer of colon Cystic fibrosis Dementia Dysphagia Family history: Allergy Family history: Alzheimer's disease Family history: Breast disease Family history: Gastrointestinal disease Family history: Glaucoma Family history: Osteoporosis Family history: Thyroid disorder Headache Hearing loss Hereditary disease History of - anemia History of drug abuse Human immunodeficiency virus (HIV) seropositivity Infertile Malignant neoplasm of lung Parkinson's disease Prostate cancer Psychotic disorder Seizure disorder Stroke Tuberculosis Visual impairment Review of Systems Constitutional: no symptoms reported; No chills, No dizziness, No fever, No weakness EENTM: no symptoms reported; No ear pain, No eye pain, No vision loss, No mouth pain, No throat pain Respiratory: No cough; dyspnea on exertion (on 4L via N/C); No short of breath Cardiovascular: No chest pain; edema (bilateral LE), Hx of Intervention; No palpitations Gastrointestinal: no symptoms reported; No abdominal pain, No constipation, No diarrhea, No hematemesis, No melena, No nausea, No vomiting Genitourinary: no symptoms reported; No dysuria, No hematuria, No hesitancy, No incontinence Musculoskeletal: no symptoms reported; No back pain, No muscle pain, No muscle stiffness, No muscle weakness, No neck pain Skin: no symptoms reported; No rash Psychiatric/Neurological: No Symptoms Reported; Denies Headache, Denies Weakness Physical Exam Vital Signs Vital Signs - First Documented 07/20/20 15:38 Temp 36.8 Pulse 99 Resp 31 B/P (MAP) 173/144 (154) Pulse Ox 94 O2 Delivery Nasal Cannula O2 Flow Rate 2.00 Capillary Refill : Less Than 3 Seconds Height, Weight, BMI Height: 5'6.00" Weight: 318lbs. 3.2oz. 144.457574gb; 48.39 BMI Method: General Appearance: No Apparent Distress, WD/WN, Obese HEENT: PERRL/EOMI, Pharynx Normal Neck: Normal Inspection, Non Tender, Supple Respiratory: Chest Non Tender, Lungs Clear, No Accessory Muscle Use, No Respiratory Distress, Decreased Breath Sounds, Respiratory Distress Cardiovascular: Regular Rate, Rhythm, No Gallop, No Murmur Gastrointestinal: No Pulsatile Mass, Non Tender, Soft Rectal: Deferred Back: No CVA Tenderness, No Vertebral Tenderness Extremity: Normal Inspection, Non Tender, No Calf Tenderness, Pedal Edema Neurologic/Psychiatric: Alert, Oriented x3, No Motor/Sensory Deficits, Normal Mood/Affect Skin: Normal Color, Warm/Dry Lymphatic: No Adenopathy Assessment/Plan Assessment and Plan Assessment: acute respiratory failure with hypoxia most likely caused by fluid overload subacute MS uncontrolled hypertension- currently at 154/111 leukocytosis- not likely infectious, current WBC of 14.7 diabetes- currently blood glucose of 191 sprained ankle Plan: consult cardiology ECHO MAT protocol PT DVT prophylaxis LUCINA LYON MD 07/21/20 2017: Allergies and Home Medications Allergies Coded Allergies: No Known Drug Allergies (Unverified , 09/01/13) Home Medications Acetaminophen 500 Mg Tablet, 1,000 MG PO Q8H PRN for PAIN-MILD (1-4), (Reported) Aspirin 81 Mg Tab.chew, 81 MG PO DAILY, (Reported) Atorvastatin Calcium 80 Mg Tablet, 80 MG PO HS, (Reported) Clopidogrel Bisulfate 75 Mg Tablet, 75 MG PO DAILY, (Reported) Furosemide 40 Mg Tablet, 40 MG PO DAILY, (Reported) Lisinopril 20 Mg Tablet, 20 MG PO DAILY, (Reported) Metoprolol Succinate 200 Mg Tab.er.24h, 200 MG PO BID, (Reported) Potassium Chloride 20 Meq Tablet.er, 20 MEQ PO DAILY, (Reported) Patient Home Medication List Home Medication List Reviewed: Yes Past Qrreovd-Jjkqwc-Vbwdob Hx Family Medical History Family Hx: Cancer Cataract Chest pain Congenital heart disease Congestive heart failure Family history: Arthritis Family history: Asthma Family history: Cardiovascular disease Family history: Coronary thrombosis Family history: Diabetes mellitus Family history: Hypertension Heart disease History of - respiratory disease Hypercholesterolemia Kidney disease Myocardial infarction No Family History of: Abdominal aortic aneurysm Schleicher's disease Alcoholism Aphasia Cancer of colon Cystic fibrosis Dementia Dysphagia Family history: Allergy Family history: Alzheimer's disease Family history: Breast disease Family history: Gastrointestinal disease Family history: Glaucoma Family history: Osteoporosis Family history: Thyroid disorder Headache Hearing loss Hereditary disease History of - anemia History of drug abuse Human immunodeficiency virus (HIV) seropositivity Infertile Malignant neoplasm of lung Parkinson's disease Prostate cancer Psychotic disorder Seizure disorder Stroke Tuberculosis Visual impairment Review of Systems Constitutional: no symptoms reported; No chills, No dizziness, No fever, No malaise, No weakness EENTM: no symptoms reported Respiratory: dyspnea on exertion (on 4L via N/C), orthopnea, short of breath Cardiovascular: No chest pain; edema (bilateral LE), Hx of Intervention (Last week); No palpitations Gastrointestinal: no symptoms reported; No abdominal pain, No constipation, No diarrhea, No hematemesis, No loss of appetite, No nausea, No vomiting Genitourinary: no symptoms reported; No dysuria, No frequency, No hematuria Musculoskeletal: no symptoms reported Skin: no symptoms reported Psychiatric/Neurological: No Symptoms Reported; Denies Headache, Denies Numbness, Denies Paresthesia, Denies Weakness Physical Exam General Appearance: No Apparent Distress, WD/WN, Obese HEENT: PERRL/EOMI Neck: Normal Inspection, Non Tender, Supple Respiratory: Chest Non Tender, No Accessory Muscle Use, Decreased Breath Sounds, Respiratory Distress Cardiovascular: Regular Rate, Rhythm, No Murmur Gastrointestinal: Normal Bowel Sounds, Non Tender, Soft Back: No CVA Tenderness, No Vertebral Tenderness Extremity: Normal Inspection, Non Tender, No Calf Tenderness, Pedal Edema (2+ pitting edema bilaterally) Neurologic/Psychiatric: Alert, Oriented x3, No Motor/Sensory Deficits, Normal Mood/Affect, foreign correspondent II-XII Norm as Tested Skin: Normal Color, Warm/Dry Lymphatic: No Adenopathy Assessment/Plan Assessment and Plan Problems: (1) Acute on chronic systolic (congestive) heart failure Status: Acute Assessment & Plan: - Cardiology consulted, appreciate recommendations, IV Lasix, Strict I/Os, Cardiac diet (2) Ischemic cardiomyopathy Status: Chronic (3) STEMI (ST elevation myocardial infarction) Status: Acute Assessment & Plan: - Sub Acute ACS with intervention earlier this month (4) Acute coronary syndrome with high troponin Status: Acute (5) HLD (hyperlipidemia) Status: Chronic Qualifiers: Qualified Codes: E78.5 - Hyperlipidemia, unspecified (6) Insulin dependent diabetes mellitus with complications Status: Chronic Assessment & Plan: - A1c pending (7) BMI 45.0-49.9, adult Status: Chronic (8) DVT prophylaxis Assessment & Plan: - Lovenox Admission Diagnosis Admission Status: Inpatient Order (span 2 midnights) Reason for Inpatient Admission: Requiring IV medication and cardiac consultation Supervisory-Addendum Brief Verification & Attestation Participated in pt care: history, physical Personally performed: exam, history Care discussed with: Medical Student Procedures: n/a Verification and Attestation of Medical Student E/M Service A medical student performed and documented this service in my presence. I reviewed and verified all information documented by the medical student and made modifications to such information, when appropriate. I personally performed the physical exam and medical decision making. Lucina Lyon, Jul 21, 2020,20:16 ENRIQUE HOLBROOK MED STUDENT Jul 21, 2020 12:09 LUCINA LYON MD Jul 21, 2020 20:17
[2020-07-21] MEDS ORDERED: POTA-51 PO (13:26)
[2020-07-21] MEDS ORDERED: ASPI-999 PO (13:26)
[2020-07-21] MEDS ORDERED: CLOP75TA28 PO (13:26)
[2020-07-21] MEDS ORDERED: FURO40TA4 PO (13:26)
[2020-07-21] MEDS ORDERED: METO200T48 PO (13:26)
[2020-07-21] MEDS ORDERED: ATOR80TA76 PO (13:26)
[2020-07-21] MEDS ORDERED: LISI20TA26 PO (13:26)
--- NOTE | 2020-07-21 17:19 | Progress Note - Cardiology ---
Cardiology SOAP Progress Note Subjective: Shortness of breath better Denies cp or palp or syncope Denies focal weakness Gen malaise No n/v/d Objective: I&O/Vital Signs 07/21/20 07/21/20 07/21/20 07/21/20 06:00 06:29 07:00 07:46 Temp 35.9 Pulse 81 85 74 Resp 29 B/P (MAP) 154/111 (125) 148/112 (124) Pulse Ox 93 97 O2 Delivery Nasal Cannula Nasal Cannula O2 Flow Rate 3.00 3.00 07/21/20 07/21/20 07/21/20 07/21/20 08:00 08:00 09:00 10:00 Pulse 70 74 63 Resp 26 20 23 B/P (MAP) 143/118 (126) 162/124 (137) 139/105 (116) Pulse Ox 99 89 95 O2 Delivery Nasal Cannula Nasal Cannula Nasal Cannula Nasal Cannula O2 Flow Rate 3.00 3.00 3.00 3.00 07/21/20 07/21/20 07/21/20 07/21/20 10:12 11:00 11:56 12:00 Temp 35.6 Pulse 70 Resp 25 B/P (MAP) 140/108 (119) Pulse Ox 92 96 O2 Delivery Nasal Cannula Nasal Cannula Nasal Cannula O2 Flow Rate 4.00 3.00 3.00 07/21/20 07/21/20 07/21/20 07/21/20 12:00 12:49 13:00 14:00 Pulse 75 76 75 84 Resp 35 27 24 B/P (MAP) 164/107 (126) 151/105 (120) 128/107 (114) Pulse Ox 93 100 95 O2 Delivery Nasal Cannula Nasal Cannula Nasal Cannula O2 Flow Rate 3.00 3.00 3.00 07/21/20 07/21/20 15:00 15:20 Temp 36.3 Pulse 73 Resp 30 B/P (MAP) 134/103 (113) Pulse Ox 90 O2 Delivery Nasal Cannula O2 Flow Rate 3.00 07/21/20 00:00 Intake Total 200 ml Output Total 375 ml Balance -175 ml Weight (Pounds): 318 Weight (Ounces): 3.2 Weight (Calculated Kilograms): 144.281556 Results/Procedures: Labs Laboratory Tests 07/20/20 21:23: Troponin I 8.799*H 07/21/20 03:28: Troponin I 7.921*H, White Blood Count 14.7H, Red Blood Count 4.41, Hemoglobin 13.0L, Hematocrit 41, Mean Corpuscular Volume 94, Mean Corpuscular Hemoglobin 30, Mean Corpuscular Hemoglobin Concent 31L, Red Cell Distribution Width 14.0, Platelet Count 289, Mean Platelet Volume 11.1, Immature Granulocyte % (Auto) 1, Neutrophils (%) (Auto) 62, Lymphocytes (%) (Auto) 28, Monocytes (%) (Auto) 8, Eosinophils (%) (Auto) 1, Basophils (%) (Auto) 0, Neutrophils # (Auto) 9.1H, Lymphocytes # (Auto) 4.1H, Monocytes # (Auto) 1.2H, Eosinophils # (Auto) 0.1, Basophils # (Auto) 0.0, Immature Granulocyte # (Auto) 0.1, Neutrophils % (Manual) 67, Lymphocytes % (Manual) 25, Monocytes % (Manual) 4, Eosinophils % (Manual) 1, Basophils % (Manual) 0, Metamyelocytes % 1, Band Neutrophils 2, Polychromasia SLIGHT, Anisocytosis SLIGHT, Macrocytosis SLIGHT, Sodium Level 138, Potassium Level 3.6, Chloride Level 99, Carbon Dioxide Level 26, Anion Gap 13, Blood Urea Nitrogen 17, Creatinine 0.97, Estimat Glomerular Filtration Rate > 60, BUN/Creatinine Ratio 18, Glucose Level 191H, Calcium Level 8.7, Corrected Calcium 9.0, Phosphorus Level 4.3, Magnesium Level 1.8, Total Bilirubin 1.1H, Aspartate Amino Transf (AST/SGOT) 27, Alanine Aminotransferase (ALT/SGPT) 40, Alkaline Phosphatase 106, Total Protein 7.3, Albumin 3.6 A/P: Assessment: Ac systolic CHF due to ischemic cardiomyopathy, LVEF 45% on card cath of 07-15-[address]-elevation myocardial infarction on 07-15-2020, status post emergency cardiac catheterization and stenting to the LAD using a Xience 2.75 x 23 mm deployed at 20 lucas, 30-40 percent stenosis in the circumflex and right coronary artery, elevated left ventricular end-diastolic pressure. Hyperlipidemia, treated with atorvastatin Diabetes mellitus, managed by primary care team Morbid obesity, BMI 48.5 Questionable underlying sleep apnea Plan: * I reviewed his records, and interviewed and examined him * I discussed his case with Dr Mann this morning * Change diuretics to oral * Continue DAPT * Monitor labs * We discussed management of coronary risk factors and management of heart failure ZURDO TRIMBLE MD FACP [facility] Jul 21, 2020 17:19
[2020-07-22] MEDS ORDERED: NS (IVPB) 100 ML ONE (02:46)
[2020-07-22] MEDS ORDERED: AMIODARONE 450 MG/9 ML (CORDARONE) VIAL IV ONE (02:50)
[2020-07-22] MEDS ORDERED: D5W IV SOLUTION (EXCEL) 250 ML IV ONE (02:50)
[2020-07-22 03:28] LABS: ABG BASE EXCESS -12.3 MMOL/L (-2.5-2.5); ABG OXYGEN SATURATION 47 % (94-100); ABG PO2 52 MMHG (79-93); ABG TCO2 23.4 MMOL/L (21.0-31.0)
[2020-07-22 03:30] LABS: ABG PCO2 108 MMHG (35-45); ABG PH 6.88 (7.37-7.43); ALLENS TEST POSITIVE; INSPIRED O2 BAGGING; PATIENT TEMP 35.4; VENTILATOR NO
--- NOTE | 2020-07-22 03:56 | Progress Note - Cardiology ---
Cardiology SOAP Progress Note Objective: I&O/Vital Signs 07/21/20 07/21/20 07/21/20 07/21/20 16:00 16:00 17:00 18:00 Pulse 71 69 75 Resp 19 19 16 B/P (MAP) 139/95 (110) 123/83 (96) 132/99 (110) Pulse Ox 100 97 100 O2 Delivery Nasal Cannula Nasal Cannula Nasal Cannula Nasal Cannula O2 Flow Rate 3.00 3.00 3.00 3.00 07/21/20 07/21/20 07/21/20 07/21/20 19:00 19:00 19:09 19:24 Temp 35.7 Pulse 90 84 87 Resp 25 18 B/P (MAP) 167/97 (120) 125/115 (118) Pulse Ox 100 100 O2 Delivery Nasal Cannula Nasal Cannula O2 Flow Rate 3.00 3.00 07/21/20 07/21/20 07/21/20 07/21/20 20:00 20:00 21:00 22:00 Pulse 82 72 68 Resp 27 17 17 B/P (MAP) 140/86 (104) 120/79 (93) 126/89 (101) Pulse Ox 100 97 96 O2 Delivery Nasal Cannula Nasal Cannula Nasal Cannula Nasal Cannula O2 Flow Rate 3.00 3.00 3.00 3.00 07/21/20 07/21/20 07/22/20 07/22/20 23:00 23:08 00:10 01:00 Pulse 80 72 Resp 24 B/P (MAP) 115/100 (105) Pulse Ox 97 96 O2 Delivery Nasal Cannula Nasal Cannula Nasal Cannula O2 Flow Rate 3.00 3.00 3.00 07/22/20 00:00 Intake Total 950 ml Output Total 1750 ml Balance -800 ml Weight (Pounds): 318 Weight (Ounces): 3.2 Weight (Calculated Kilograms): 144.857755 Results/Procedures: Labs Laboratory Tests 07/22/20 03:23: Blood Gas Puncture Site LEFT RADIAL, Blood Gas Patient Temperature 35.4, Ar terial Blood pH 6.88*L, Arterial Blood Partial Pressure CO2 108*H, Arterial Blood Partial Pressure O2 52L, Arterial Blood HCO3 20L, Arterial Blood Total CO2 23.4, Arterial Blood Oxygen Saturation 47L, Arterial Blood Base Excess -12.3L, Adair Test POSITIVE, Blood Gas Ventilator Setting NO, Blood Gas Inspired Oxygen BAGGING Physician Assessment Physician Assessment 0255 - 0345 Pt developed sudden VF arrest this am. Dr Quiles of [facility] and Dr Marin from ED ran the code. I was called during the code. I arrived at approx 0255 and stayed at patient's bedside, running the code jointly with Dr Quiles. Full ACLS protocol followed. Despite extensive measures and a long effort at resuscitation, there was no durable hemodynamic response (regained pulse for less than a minute at one point and ECG showed RBBB w/o any distinct ST elevation; this degenerated to pulseless bradycardia resulting in continuing rescuscitative efforts that remained unsuccessful). I spoke with the authorized family member and informed them of the situation. They asked us to stop if effort remains unsuccessful. CPR and ACLS protocols were continued for another several minutes but he remained hemodynamically unresponsive. Code was called off at 0337 and patient pronounced . ZURDO TRIMBLE MD FACP [facility] Jul 22, 2020 03:56
[2020-07-22] MEDS ORDERED: FUROSEMIDE 40 MG (LASIX) TAB PO SCH (09:00)
[2020-07-22] MEDS ORDERED: ENOXAPARIN 40 MG/0.4 ML (LOVENOX) SYR SC SCH (10:00)
[2020-07-22] MEDS ORDERED: CATHETER FLUSH 10 ML SYR IV ONE (12:50)
[2020-07-22] MEDS ORDERED: LIDOCAINE BOLUS 100 MG/5 ML (IMS) SYR INJ ONE (12:50)
[2020-07-22] MEDS ORDERED: MAGNESIUM SULF 5 GM/10 ML VIAL IV ONE (12:50)
[2020-07-22] MEDS ORDERED: ATROPINE INJECTION 1 MG/10 ML SYR (ABBOTT) INJ ONE (12:50)
[2020-07-22] MEDS ORDERED: CALCIUM CHLORIDE 1 GM/10 ML (IMS) SYR INJ ONE (12:50)
[2020-07-22] MEDS ORDERED: SODIUM BICARB 8.4% 50 MEQ/50 ML (ABBOTT) SYR INJ ONE (12:50)
[2020-07-22] MEDS ORDERED: AMIODARONE (BOLUS) 150 MG/3 ML IV ONE (12:50)
[2020-07-22] MEDS ORDERED: EPINEPHrine 0.1 MG/ML 10 ML (HOSPIRA) SYR INJ ONE (12:50)
--- NOTE | 2020-07-22 12:52 | Discharge Summary ---
Discharge Summary Date of Admission Jul 20, 2020 at 17:23 Date of Discharge 07/22/20 Discharge Date: Jul 22, 2020 Comfort Measures/ Cardiopulmonary Arrest: Cardiac Arrest (Vent Tach) Date of : Jul 22, 2020 Time of : 03:37 Tele Alarm for V-Tach, Code Blue called, See nursing notes, Dr Moses called TOD Discharge Diagnosis (1) Acute on chronic systolic (congestive) heart failure Status: Acute Assessment & Plan: - Cardiology consulted, appreciate recommendations, IV Lasix, Strict I/Os, Cardiac diet (2) Ischemic cardiomyopathy Status: Chronic (3) STEMI (ST elevation myocardial infarction) Status: Acute Assessment & Plan: - Sub Acute ACS with intervention earlier this month (4) Acute coronary syndrome with high troponin Status: Acute (5) HLD (hyperlipidemia) Status: Chronic Qualifiers: Qualified Codes: E78.5 - Hyperlipidemia, unspecified (6) Insulin dependent diabetes mellitus with complications Status: Chronic Assessment & Plan: - A1c pending (7) BMI 45.0-49.9, adult Status: Chronic (8) DVT prophylaxis Assessment & Plan: - LUCINA Roman MD Jul 22, 2020 12:52
--- NOTE | 2020-07-22 15:58 | Physician Query Clarification ---
"Physician Query-General Query to Physician: The medical record reflects the following clinical scenario: History/Risk factors: Former Smoker, CHF, CAD, STEMI Clinical Findings: profoundly dyspneic and hypoxic, 83% O2 sat on RA, RR 31, Short of air at rest per nursing Treatment: Lasix IV, 02 at 3L, ICU Admission, Cardiology consult Question: What condition best reflects the above clinical scenario? (Acute respiratory failure with hypoxia was listed only once in the Assessment on the H and P but not on the Dx list or on the Discharge summary) Please document response in the Progress notes or Discharge Summary. 1. Acute Hypoxic Respiratory Failure Present on admission 2. Other , with explanation of the clinical findings 3. Clinically undetermined, no explanation for the clinical findings Please remember a lack of response to the above will prompt a phone page by CDI/coding staff In responding to this query, please exercise your independent professional judgment. The purpose of this communication is to more accurately reflect the complexity of your patients condition. The fact that a question is asked does not imply that any particular answer is desired or expected. Thank you for timely response to this clarification. Candace Fisher, MSN, RN RN Specialist-Clinical Doc Improvement CD -Health Info Mgmt Operations [address] [facility] t: [phone] | f: [phone] If you are unable to reach me at my extension, I may be working from home. Please contact me at [phone] PHYSICIAN RESPONSE: Based on the clinical findings in the record, please respond to the query above on this document as an addendum. Physician Response: Physician Response Present on admission If you have questions please contact: Network Systems Engineer: Ext: Thank you for your time and cooperation. Clinical Retail Client Manager/Network Systems Engineer This is a permanent part of the medical record CANDACE FISHER Jul 22, 2020 15:58 LUCINA ANGEL MD Jul 22, 2020 20:41"
--- NOTE | 2020-07-22 17:45 | Inpatient Code Blue ---
General Chief Complaint: Respiratory Problems Stated Complaint: ACUTE EXACERBATION CHF,HYPOXIA,ACUTE CORONARY SYN Nursing Triage Note: PT AMB RM 5 WITH COMPLAINT OF SOA AND COUGHING UP YELLOW. PT HAD STENT PLACED LAST WEEK BY DR MANDEL. WAS SENT HERE BY DR MANDEL FOR FURTHER EVALUATION. Source: other Exam Limitations: physical impairment History of Present Illness Date Seen by Provider: Jul 22, 2020 Time Seen by Provider: 02:42 Initial Comments ED provider responded to CODE BLUE activation. Patient reportedly had V. fib noted on the monitor at 0235 and patient was found to be pulseless. CPR was initiated. This provider arrived to the room at 0242. At this point magnesium 2 g was being administered. 2 rounds of epinephrine and sodium bicarb had already been administered. eICU provider was managing the code. Patient had had recent myocardial infarction with interventions and significantly elevated troponin. Patient became alert and had movement and vocalizations during initial CPR but would become unresponsive immediately after chest compressions were paused. Allergies and Home Medications Allergies Coded Allergies: No Known Drug Allergies (Unverified , 09/01/13) Home Medications Acetaminophen 500 Mg Tablet, 1,000 MG PO Q8H PRN for PAIN-MILD (1-4), (Reported) Aspirin 81 Mg Tab.chew, 81 MG PO DAILY, (Reported) Atorvastatin Calcium 80 Mg Tablet, 80 MG PO HS, (Reported) Clopidogrel Bisulfate 75 Mg Tablet, 75 MG PO DAILY, (Reported) Furosemide 40 Mg Tablet, 40 MG PO DAILY, (Reported) Lisinopril 20 Mg Tablet, 20 MG PO DAILY, (Reported) Metoprolol Succinate 200 Mg Tab.er.24h, 200 MG PO BID, (Reported) Potassium Chloride 20 Meq Tablet.er, 20 MEQ PO DAILY, (Reported) Patient Home Medication List Home Medication List Reviewed: No Physical Exam Vital Signs Vital Signs - First Documented 07/20/20 15:38 Temp 36.8 Pulse 99 Resp 31 B/P (MAP) 173/144 (154) Pulse Ox 94 O2 Delivery Nasal Cannula O2 Flow Rate 2.00 Capillary Refill : Less Than 3 Seconds Height, Weight, BMI Height: 5'6.00" Weight: 318lbs. 3.2oz. 144.833638zc; 48.39 BMI Method: General Appearance: other (See HPI) Respiratory: lungs clear Cardiovascular: other (Combination of V. fib, sinus bradycardia, and PEA on the monitor) Neurologic/Psychiatric: other (Briefly responsive during chest compressions. After a few minutes he became completely unresponsive.) Skin: cyanosis, cool Procedures/Interventions Reason for Intubation: Cardiopulmonary arrest Date of ETT Placement: Jul 22, 2020 Time of ETT Placement: 02:56 Intubation Method: orotracheal Tube Size: 7.5 Positive End Tide CO2: Yes (Color change capnography was positive) Breath Sounds after Intubation: bilateral-equal Intubation Complications: no complications Post Intubation Xray: No Patient was intubated without the need for any sedation or paralytics. ET tube confirmation was achieved by auscultation of equal breath sounds bilaterally and no air sounds in the epigastrium. Patient was hypoxic prior to intubation with no improvement after intubation. There were no complications. Critical Care Note Critical Care Start Time: 02:42 Stop Time: 03:13 Total Time (minutes) 31 Date of : Jul 22, 2020 Time of : 03:37 Progress CPR was in progress upon my arrival. He had already received 2 doses of epinephrine, a dose of sodium bicarb, and was receiving 2 g of magnesium. Initial rhythm on my arrival appeared to be torsades. Resuscitation efforts continued. Patient underwent defibrillation multiple times. He received amiodarone 150 mg by IV route. The tapering infusions of amiodarone followed. When V. fib returned, Lidocaine 100 mg was administered. Patient was intubated by this provider at 02:56. Dr. Moses was consulted during the resuscitation efforts and eventually arrived to the ICU at approximately 03:13. Patient had received multiple doses of epinephrine and sodium bicarb. At this time I departed the ICU and turned care over to Dr. Moses. Resuscitation efforts continued until was pronounced at 03:37. See nursing notes for exact timeline of interventions and medications administered. Progress/Results/Core Measures Results/Orders Lab Results Laboratory Tests Test 07/20/20 15:45 07/20/20 21:23 07/21/20 03:28 07/22/20 03:23 Range/Units White Blood Count 13.0 H 14.7 H 4.3-11.0 10^3/uL Red Blood Count 4.52 4.41 4.30-5.52 10^6/uL Hemoglobin 13.4 13.0 L 13.3-17.7 g/dL Hematocrit 42 41 40-54 % Mean Corpuscular Volume 94 94 80-99 fL Mean Corpuscular Hemoglobin 30 30 25-34 pg Mean Corpuscular Hemoglobin Concent 32 31 L 32-36 g/dL Red Cell Distribution Width 14.1 14.0 10.0-14.5 % Platelet Count 315 289 130-400 10^3/uL Mean Platelet Volume 10.9 11.1 9.0-12.2 fL Immature Granulocyte % (Auto) 1 1 % Neutrophils (%) (Auto) 65 62 42-75 % Lymphocytes (%) (Auto) 24 28 12-44 % Monocytes (%) (Auto) 9 8 0-12 % Eosinophils (%) (Auto) 1 1 0-10 % Basophils (%) (Auto) 0 0 0-10 % Neutrophils # (Auto) 8.4 H 9.1 H 1.8-7.8 10^3/uL Lymphocytes # (Auto) 3.1 4.1 H 1.0-4.0 10^3/uL Monocytes # (Auto) 1.2 H 1.2 H 0.0-1.0 10^3/uL Eosinophils # (Auto) 0.1 0.1 0.0-0.3 10^3/uL Basophils # (Auto) 0.0 0.0 0.0-0.1 10^3/uL Immature Granulocyte # (Auto) 0.2 H 0.1 0.0-0.1 10^3/uL Prothrombin Time 15.3 H 12.2-14.7 SEC INR Comment 1.2 0.8-1.4 Activated Partial Thromboplast Time 31 24-35 SEC Sodium Level 137 138 135-145 MMOL/L Potassium Level 3.7 3.6 3.6-5.0 MMOL/L Chloride Level 99 99 98-107 MMOL/L Carbon Dioxide Level 25 26 21-32 MMOL/L Anion Gap 13 13 5-14 MMOL/L Blood Urea Nitrogen 18 17 7-18 MG/DL Creatinine 1.08 0.97 0.60-1.30 MG/DL Estimat Glomerular Filtration Rate > 60 > 60 BUN/Creatinine Ratio 17 18 Glucose Level 285 H 191 H 70-105 MG/DL Calcium Level 8.9 8.7 8.5-10.1 MG/DL Total Creatine Kinase 256 H 30-200 U/L Creatine Kinase MB 3.3 <6.6 NG/ML Myoglobin 60.5 10.0-92.0 NG/ML Troponin I 9.670 *H 8.799 *H 7.921 *H <0.028 NG/ML B-Type Natriuretic Peptide 760.7 H <100.0 PG/ML Neutrophils % (Manual) 67 % Lymphocytes % (Manual) 25 % Monocytes % (Manual) 4 % Eosinophils % (Manual) 1 % Basophils % (Manual) 0 % Metamyelocytes % 1 % Band Neutrophils 2 % Polychromasia SLIGHT Anisocytosis SLIGHT Macrocytosis SLIGHT Corrected Calcium 9.0 8.5-10.1 MG/DL Phosphorus Level 4.3 2.3-4.7 MG/DL Magnesium Level 1.8 1.6-2.4 MG/DL Total Bilirubin 1.1 H 0.1-1.0 MG/DL Aspartate Amino Transf (AST/SGOT) 27 5-34 U/L Alanine Aminotransferase (ALT/SGPT) 40 0-55 U/L Alkaline Phosphatase 106 40-136 U/L Total Protein 7.3 6.4-8.2 GM/DL Albumin 3.6 3.2-4.5 GM/DL Blood Gas Puncture Site LEFT RADIAL Blood Gas Patient Temperature 35.4 Arterial Blood pH 6.88 *L 7.37-7.43 Arterial Blood Partial Pressure CO2 108 *H 35-45 MMHG Arterial Blood Partial Pressure O2 52 L 79-93 MMHG Arterial Blood HCO3 20 L 23-27 MMOL/L Arterial Blood Total CO2 23.4 21.0-31.0 MMOL/L Arterial Blood Oxygen Saturation 47 L 94-100 % Arterial Blood Base Excess -12.3 L -2.5-2.5 MMOL/L Adair Test POSITIVE Blood Gas Ventilator Setting NO Blood Gas Inspired Oxygen BAGGING My Orders Orders - ALANIS BOUCHER MD Arterial Blood Draw (07/22/20 03:25) Vital Signs/I&O 07/20/20 07/20/20 07/20/20 07/20/20 15:38 17:56 18:20 18:21 Temp 36.8 Pulse 99 85 82 Resp 31 26 B/P (MAP) 173/144 (154) 143/124 166/119 (135) Pulse Ox 94 96 93 O2 Delivery Nasal Cannula Nasal Cannula Nasal Cannula O2 Flow Rate 2.00 3.00 3.00 07/20/20 07/20/20 07/20/20 3/16/21 18:27 19:00 19:00 20:00 Pulse 88 88 B/P (MAP) 164/121 (135) Pulse Ox 96 O2 Delivery Nasal Cannula Nasal Cannula Nasal Cannula O2 Flow Rate 3.00 3.00 3.00 07/20/20 07/20/20 07/20/20 07/20/20 20:00 20:02 20:16 21:00 Temp 35.0 Pulse 84 90 85 Resp 24 B/P (MAP) 202/146 (164) 155/111 (126) 164/131 (142) Pulse Ox 96 94 94 O2 Delivery Nasal Cannula Nasal Cannula Nasal Cannula O2 Flow Rate 3.00 3.00 3.00 07/20/20 07/20/20 07/20/20 07/20/20 21:48 22:00 22:24 23:15 Pulse 82 83 81 Resp 29 23 33 B/P (MAP) 161/142 (148) 173/124 (140) 141/126 (131) Pulse Ox 94 93 94 O2 Delivery Nasal Cannula Nasal Cannula Nasal Cannula Nasal Cannula O2 Flow Rate 3.00 3.00 3.00 3.00 07/20/20 07/20/20 07/21/20 07/21/20 23:22 23:36 00:00 01:00 Temp 36.0 Pulse 79 79 Resp 19 B/P (MAP) 145/89 (107) Pulse Ox 93 O2 Delivery Nasal Cannula Nasal Cannula O2 Flow Rate 3.00 3.00 07/21/20 07/21/20 07/21/20 07/21/20 01:00 02:00 03:00 03:45 Pulse 79 76 78 B/P (MAP) 157/118 (131) 158/123 (135) 166/113 (130) Pulse Ox 73 93 79 O2 Delivery Nasal Cannula Nasal Cannula Nasal Cannula Nasal Cannula O2 Flow Rate 3.00 3.00 3.00 3.00 07/21/20 07/21/20 07/21/20 07/21/20 04:00 05:00 06:00 06:29 Pulse 69 72 81 85 B/P (MAP) 154/112 (126) 180/129 (146) 154/111 (125) Pulse Ox 93 96 93 O2 Delivery Nasal Cannula Nasal Cannula Nasal Cannula O2 Flow Rate 3.00 3.00 3.00 3/07/21/20 07/21/20 07/21/20 07:00 07:46 08:00 08:00 Temp 35.9 Pulse 74 70 Resp 29 26 B/P (MAP) 148/112 (124) 143/118 (126) Pulse Ox 97 99 O2 Delivery Nasal Cannula Nasal Cannula Nasal Cannula O2 Flow Rate 3.00 3.00 3.00 07/21/20 07/21/20 07/21/20 07/21/20 09:00 10:00 10:12 11:00 Pulse 74 63 70 Resp 20 23 25 B/P (MAP) 162/124 (137) 139/105 (116) 140/108 (119) Pulse Ox 89 95 92 96 O2 Delivery Nasal Cannula Nasal Cannula Nasal Cannula Nasal Cannula O2 Flow Rate 3.00 3.00 4.00 3.00 07/21/20 07/21/20 07/21/20 07/21/20 11:56 12:00 12:00 12:49 Temp 35.6 Pulse 75 76 Resp 35 B/P (MAP) 164/107 (126) Pulse Ox 93 O2 Delivery Nasal Cannula Nasal Cannula O2 Flow Rate 3.00 3.00 07/21/20 07/21/20 07/21/20 07/21/20 13:00 14:00 15:00 15:20 Temp 36.3 Pulse 75 84 73 Resp 27 24 30 B/P (MAP) 151/105 (120) 128/107 (114) 134/103 (113) Pulse Ox 100 95 90 O2 Delivery Nasal Cannula Nasal Cannula Nasal Cannula O2 Flow Rate 3.00 3.00 3.00 07/21/20 07/21/20 07/21/20 07/21/20 16:00 16:00 17:00 18:00 Pulse 71 69 75 Resp 19 19 16 B/P (MAP) 139/95 (110) 123/83 (96) 132/99 (110) Pulse Ox 100 97 100 O2 Delivery Nasal Cannula Nasal Cannula Nasal Cannula Nasal Cannula O2 Flow Rate 3.00 3.00 3.00 3.00 07/21/20 07/21/20 07/21/20 07/21/20 19:00 19:00 19:09 19:24 Temp 35.7 Pulse 90 84 87 Resp 25 18 B/P (MAP) 167/97 (120) 125/115 (118) Pulse Ox 100 100 O2 Delivery Nasal Cannula Nasal Cannula O2 Flow Rate 3.00 3.00 07/21/20 07/21/20 07/21/20 07/21/20 20:00 20:00 21:00 22:00 Pulse 82 72 68 Resp 27 17 17 B/P (MAP) 140/86 (104) 120/79 (93) 126/89 (101) Pulse Ox 100 97 96 O2 Delivery Nasal Cannula Nasal Cannula Nasal Cannula Nasal Cannula O2 Flow Rate 3.00 3.00 3.00 3.00 07/21/20 07/21/20 07/22/20 07/22/20 23:00 23:08 00:00 00:10 Pulse 80 70 Resp 24 17 B/P (MAP) 115/100 (105) 152/92 (112) Pulse Ox 97 96 99 O2 Delivery Nasal Cannula Nasal Cannula Nasal Cannula Nasal Cannula O2 Flow Rate 3.00 3.00 3.00 3.00 07/22/20 07/22/20 07/22/20 07/22/20 01:00 01:00 02:00 03:00 Pulse 70 72 70 18 Resp 14 25 B/P (MAP) 142/97 (112) 118/101 (107) 152/124 (133) Pulse Ox 100 85 50 O2 Delivery Nasal Cannula Nasal Cannula Nasal Cannula O2 Flow Rate 3.00 3.00 3.00 Blood Pressure Mean: 133 ALANIS BOUCHER MD Jul 22, 2020 17:44
== END 2020-07-22 03:37 | disposition expired ==
LOC: EDUNIT# 15:32 → ER 15:34 → ICU 17:23
PROVIDERS: ADMIT Family Medicine; ATTEND Family Medicine
PROC: 5A12012 Performance of Cardiac Output, Single, Manual (ICD-10-PCS; principal; 2020-07-22)
DX: I11.0 Hypertensive heart disease with heart failure (principal); I21.3 ST elevation (STEMI) myocardial infarction of unspecified site; J96.01 Acute respiratory failure with hypoxia; I16.1 Hypertensive emergency; Z68.42 Body mass index [BMI] 45.0-49.9, adult; I50.23 Acute on chronic systolic (congestive) heart failure; I49.01 Ventricular fibrillation; I46.9 Cardiac arrest, cause unspecified; I25.10 Atherosclerotic heart disease of native coronary artery without angina pectoris; E11.9 Type 2 diabetes mellitus without complications; I25.5 Ischemic cardiomyopathy; E78.5 Hyperlipidemia, unspecified; E66.01 Morbid (severe) obesity due to excess calories; S93.409A Sprain of unspecified ligament of unspecified ankle, initial encounter; Z95.5 Presence of coronary angioplasty implant and graft; Z79.84 Long term (current) use of oral hypoglycemic drugs; Z79.82 Long term (current) use of aspirin; Z83.3 Family history of diabetes mellitus; Z82.49 Family history of ischemic heart disease and other diseases of the circulatory system
CPT/HCPCS: 36415; 36600; 71045; 80048; 80053; 82550; 82553; 82805; 83735; 83874; 83880; 84100; 84484; 85007; 85025; 85027; 85610; 85730; 93005